=== PATIENT | female | born 1960 | race Caucasian/White ===

== ENCOUNTER 2024-02-29 17:48 | Inpatient (IN) | payer OTHER, SELFPAY ==
[2024-02-29] VITALS (19 sets, daily range): BP systolic 114–165; BP diastolic 51–112; BMI 28.5; BMI 24.9
[2024-02-29 14:47] LABS: Glucose - Point of Care 229 mg/dl (70-99)
--- NOTE | 2024-02-29 15:14 | ED.GENMED ---
History of Present Illness
General
Chief Complaint: Urinary Symptoms
Source: spouse
Time Seen by Provider: 02/29/24 14:37
History of Present Illness
History of Present Illness:
63-year-old female brought to the emergency room by ambulance from home due to decreased responsiveness. 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 She is cared for at home by her with the
help of visiting nurses. Patient's states that she was unresponsive for the wound care nurse today. Her normal level of responsiveness is eyes open and making eye contact. She will use her eyes to indicate that she understands questions
etc. She will occasionally follow commands. She will occasionally attempt to mouth words. Patient states that in the recent past the patient had some diarrhea which has resolved. Following the diarrhea she seemed to develop a urinary tract
infection as evidenced by foul-smelling urine, discolored urine and a fever. gave the patient bacitracin pills which he had at home. The urine seem to clear up. The patient was awake at her baseline earlier today and this change in
responsiveness happened 'suddenly'. Patient's is concerned about her blood pressure. He measures her blood pressure at least 10 times a day. He adjusts the dose of her blood pressure medicine depending upon her blood pressure. It
sometimes goes as low as 99/54 and as high as a systolic of 145. He is concerned that her fluctuating blood pressure may be contributing to her level of consciousness.
Past History
Past History
ED Past Medical History: CAD, HTN, Hypercholesterolemia and [place]
ED Past Surgical History: Other (Noncontributory)
Social History
Tobacco: Non-smoker
Alcohol: None
Drug: None
Personal:
Living: with family
Employment: Employed
Family History
Family History: Other (Noncontributory)
Phy Exam
Physical Exam
Physical Exam:
General: Eyes open, tracks. Appears chronically ill.
Vitals: Afebrile, normotensive, normal heart rate, normal pulse ox.
Head: Atraumatic
Eyes: Pupils equal, EOMI
Throat: Airway intact, no exudates
Neck: Trachea midline
Lungs: Clear and equal b/l
Heart: Regular rate, no murmurs
Abd: Soft, Nontender, No pulsatile mass
Neuro: Right hemiparesis
Skin: Warm, dry, no rash
Extremities: pulses equal b/l, no edema
Sepsis
Sepsis Screening
Sepsis Assessment: Sepsis Ruled Out
Sepsis Screen
Sepsis Screen: Sepsis Ruled Out
Date: 02/29/24
Time: 21:39
Course
Orders/Labs/Results
Orders:
Orders
02/29/24 Breakfast
NPO
Allow oral meds: Yes
Allow clear liquids: Sips of Clears
Comment: Allow oral meds if alert
02/29/24 14:39
Electrocardiogram (*1) Urgent
Reason for Study: Fatigue / Weakness
02/29/24 14:40
EKG- Treatment ONCE
02/29/24 15:01
CR Chest - 2 Views Urgent
Comment:
Reason For Exam: fever, decreased responsiveness
02/29/24 15:04
Basic Metabolic Panel Urgent
COVID-19 Antigen Urgent
Source: Nasal Swab
Complete Blood Count/With Diff Urgent
Influenza A+B Rapid Molecular Urgent
BRITTANY Source: Nasal Swab
Specimen Description:
02/29/24 15:13
CT Head W/o Iv Contrast Urgent
Comment:
Reason For Exam: less responsive than normal
02/29/24 16:30
Straight cath- Treatment ONCE
02/29/24 17:16
Admit/Transfer Patient As Directed
Co-Sign Provider:
Level of Care: Inpatient admission
Assign to:: IMU- Intermediate Care
Physician / Group: Shalonda
Diagnosis: Symptomatic Bradycardia
Reason for Hospitalization: Symptomatic Bradycardia
Expected length of stay greater than two midnights?: Yes
ELOS- Estimated Length of Stay in days: 3
I certify the patient meets the requirements for IP care: Yes
PRN Pain Medication Management As Directed
May give lesser potent ordered pain med per pt: Yes
preference::
Protocol:: Medication orders for pain may be administered in a
manner that supports deferring to patient preference
when the pt is:
- Requesting an ordered lesser potent pain medication.
Least to most potent pain medications are defined
as: acetaminophen < NSAID < tramadol < opioids
(morphine, oxycodone, hydromorphone).
- Requesting a lesser dose of the same medication IF
ORDERED.
- Requesting a less intrusive route of administration
if both routes are prescribed by the provider (PO <
IV).
02/29/24 17:19
Code Status As Directed
Resuscitation Status: Do not resuscitate
Reached after discussion with pt or family/Healthcare POA: Yes
DNR Bracelet Application ONCE
02/29/24 17:22
Add On- LAB Routine
Tests Added?: iron, ferrtin, tibc, folate, vit b12
Bladder Scan As Directed
Follow Bladder Retention/Intermittent Cath Algorithm?: Yes
PRN if no void in __ hours: 6
Frequency: Per Retention Algorithm
If Bladder Scan Result >: 400
then:: Straight cath
02/29/24 17:23
Straight Cath As Directed
Frequency: Per Retention Algorithm
Additional Instructions: straight cath as needed per acute urinary retention algorithm for 24 hrs
Additional Instructions: for bladder scan greater than 400 mL
02/29/24 17:30
0.9% Sodium Chloride 1000 ml [Nss] 1,000 ml IV 60 mls/hr
02/29/24 17:36
Peripheral Venous Lwr Ext Bilat US [US Periph Venous LOWER Ext Ryan] Urgent
Comment:
Reason For Exam: bilateral lower extremity edema
02/29/24 18:57
Arterial Blood Gas Urgent
%Oxygen/Room Air: 97%
02/29/24 19:20
Urinalysis Reflex To Culture Urgent
Date Specimen was Collected: 02/29/24
Time Specimen was Collected: 19:04
02/29/24 19:28
Ferritin Urgent
Folate Urgent
Iron Urgent
Procalcitonin Urgent
PCT Algorithmm Indication: Respiratory
Total Iron Binding Urgent
Vitamin B12 Urgent
02/29/24 20:00
Ampicillin/Sulbactam 3 G [Unasyn] 3 gm 0.9% Sodium Chloride 100 ml [Nss] 100 ml IV Q6H
02/29/24 20:21
Acetaminophen [Tylenol] 650 mg PO Q4HPRN PRN
Dextrose 50%-Water [Dextrose 50% Syringe] 12.5 grams IV [id number] PRN
Glucagon [GlucaGen] 1 mg IM PRN PRN
Heparin 5,000 units SC Q12
02/29/24 20:21
Echo 2D MMode Color/Doppler Routine
Reason for Study: bradycardia, lower ext edema
Cardiology Consult: Omari Baptiste
CARDIOLOGY CONSULT Routine
Consulting Provider: Omari Baptiste
Was physician already notified: Yes
WOUND/OSTOMY CONSULT Routine
Reason for Consult: sacral wound
Activity As Directed
Activity Level: Bedrest
Bedside Glucose Monitoring As Directed
Frequency: AC&HS
Additional Instructions:: Change to q6h if pt on TPN, tube feeding or not eating
I&O [Intake/ Output] As Directed
Frequency: q12h
Vital Signs As Directed
Frequency: Per unit guidelines
Weight As Directed
Frequency: Daily
Speech Therapy Eval & Treat Routine
DX Deep Vein Thrombosis Video Routine
DX Deep Vein Thrombosis Video Routine
03/01/24 06:00
Basic Metabolic Panel IN AM
Complete Blood Count/No Diff IN AM
Glycohemoglobin (HgbA1c) IN AM
TSH Reflex To Free T4 IN AM
03/01/24 07:30
Insulin Aspart Corrective Mod [Novolog Flexpen-Moderate Resistance] See Protocol SC AC
03/01/24 08:00
Clopidogrel Bisulfate [Plavix] 75 mg PO Q72H
Abnormal Lab Results
02/29/24 02/29/24
14:45 15:04
RBC 4.16 L 10^6/uL
(4.20-5.40)
Hgb 10.6 L g/dL
(12.0-16.0)
Hct 34.1 L %
(37.0-47.0)
MCH 25.5 L pg
(27.0-31.0)
MCHC 31.1 L g/dL
(33.0-37.0)
RDW 16.4 H %
(11.5-14.5)
Plt Count 416 H 10^3/uL
(130-400)
MPV 10.6 H fL
(7.4-10.4)
Absolute Lymphs (auto) 1.0 L 10^3/uL
(1.2-3.4)
Neutrophils % 78.2 H %
(42.2-75.2)
Lymphocytes % 15.5 L %
(20.5-51.1)
Sodium 134 L mmol/L
(135-145)
Carbon Dioxide 31 H mmol/L
(22-30)
Creatinine 0.4 L mg/dL
(0.6-1.0)
Glucose 205 H mg/dl
(70-99)
POC Glucose 229 H mg/dl
(70-99)
02/29/24 15:04
02/29/24 15:04
Vital Signs
Initial and Last Documented VS:
Initial Vital Signs
Temp Pulse Resp BP Pulse Ox
99.4 F 89 16 128/74 99
02/29/24 14:40 02/29/24 14:40 02/29/24 14:40 02/29/24 14:40 02/29/24 14:40
Last Documented Vital Signs
Temp Pulse Resp BP Pulse Ox
98.5 F 90 25 145/90 96
02/29/24 19:20 02/29/24 20:45 02/29/24 20:45 02/29/24 20:36 02/29/24 20:45
MDM/Problems Addressed
Differential Diagnosis Includes:
UTI, pneumonia, electrolyte abnormality, CVA or bleed,
MDM/Problems Addressed:
Patient presents with decreased mental status at home. During my evaluation the felt the patient was more like her baseline. Workup here revealed a urinalysis suggestive of a urinary tract infection. Chest x-ray had a questionable finding
of a right lower lobe infiltrate however I do not believe this is consistent with her presentation. Procalcitonin was low. CT of the head showed old infarcts but nothing acute. Patient also had an episode of bradycardia here which was also
associated with decreased mental status. Patient takes significant doses of antihypertensive including Coreg. Perhaps she is over beta blocked. Patient require hospitalization to treat her UTI and adjust blood pressure medication.
*Radiology
Radiology exam reviewed: radiology read reviewed
*Pulse Oximetry
Patient hypoxic: no
*EKG
Interpreted by ED Provider?: Yes
Heart Rate: 86
Rate: normal
Rhythm: sinus
QRS Pattern: normal QRS
Ischemia: non-specific ST changes
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
Rate: normal
Interpretation: normal
Rhythm: sinus
*Critical Care Note
Total Time (30-74mins, 75-104mins- exclusive of procedures): Not Applicable
Patient Management
Social determinants of health affecting care: Living situation
ED Attending Note
-
Portions of this chart may have been created with voice recognition software.� Occasional wrong word or��sound alike� substitutions may have occurred due to the inherent limitations of voice recognition software.
Discharge Plan
Departure
Patient Disposition: Admit
Date of Disposition: 02/29/24
Time of Disposition: 16:33
Presentation/result/management discussed w/ accepting MD/DO: Hospitalist
Condition: Fair
Discharge Problem:
Symptomatic bradycardia
Interventions
Interventions:
*Risk Screen - Suicide Last Done: 02/29/24 14:40
*General Assessment Last Done: 02/29/24 14:40
*Neglect/Abuse Screening Last Done: 02/29/24 14:40
*ED COVID-19 Vaccine History Last Done: 02/29/24 14:40
ED-Female Genitourinary Assessment Last Done: 02/29/24 15:30
--- NOTE | 2024-02-29 15:35 | EDRN ---
per the pt has a CVA in 2016 and in 2019 had a heart attack and also had a stroke again. the pt lives at home with her and home care. the pt does NOT stand or walk. 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
occasionally use it to pick something up. feeds the pt a regular diet. the pts bilateral legs 'twitch' occasionally but the pt largely does not move her legs at all. the pt has been nonverbal for the past one year and she sometimes says a
word or two but she can not form sentences. She communicates with facial expressions and eye movements per her .
[2024-02-29 15:40] LABS: COVID-19 Antigen Negative (Negative)
[2024-02-29 15:45] LABS: % Basophils 0.5 % (0-2); % Eosinophils 1.6 % (0-6); % Immature Granulocytes 0.5 % (0-0.5); % Lymphocytes 15.5 % (20.5-51.1); % Monocytes 3.7 % (1.7-9.3); % Neutrophils 78.2 % (42.2-75.2); Absolute Eosinophils 0.1 10^3/uL (0-0.7); Absolute Monocytes 0.2 10^3/uL (0.1-0.6); Absolute Neutrophils 4.9 10^3/uL (1.4-6.5); Hematocrit 34.1 % (37.0-47.0); Hemoglobin 10.6 g/dL (12.0-16.0); Mean Corp Hgb Conc. 31.1 g/dL (33.0-37.0); Mean Corpuscular Hgb 25.5 pg (27.0-31.0); Mean Platelet Volume 10.6 fL (7.4-10.4); Nucleated Red Blood Cells % 0 %; Platelet Count 416 10^3/uL (130-400); Red Blood Cell Count 4.16 10^6/uL (4.20-5.40); Red Cell Dist. Width 16.4 % (11.5-14.5); White Blood Cell Count 6.3 10^3/uL (4.8-10.8)
[2024-02-29 15:58] LABS: Blood Urea Nitrogen 14 mg/dl (7-17); Calcium 8.7 mg/dl (8.4-10.2); Carbon Dioxide 31 mmol/L (22-30); Chloride 99 mmol/L (98-107); Estimated Creatinine Clearance 100 ml/min; Glucose 205 mg/dl (70-99); Sodium 134 mmol/L (135-145); eGFR > 60.00
--- NOTE | 2024-02-29 16:37 | HPS.HSE ---
Family Physician
-
Family Physician: Lorna Hale
Chief Complaint
-
Unresponsive Episode
History of Present Illness
Patient is a 63 y/o female past medical history of multiple strokes, coronary artery disease, hypertension, and diabetes mellitus who presents following an unresponsive episode. While the wound care nurse was visiting today patient had an
unresponsive episode and she was brought to the emergency department for evaluation. While in the emergency department patient had recurrent episodes of bradycardia. Heart rate currently normal and she remains obtunded. notes she was
recently treated for a UTI with Bactrim. also notes patient's blood pressure has been quite variable and he has been making frequent adjustment to her blood pressure medications.
Medical History
Past Medical History
Past Medical History: Reports Other
Additional Past Medical History:
CVA with residual aphasia, left hemiparesis
Coronary Artery Disease s/p Stent
Essential Hypertension
Hyperlipidemia
Diabetes Mellitus, Type II
Sacral Decubitus
Past Surgical History: Reports None
Social History
Tobacco: Non-smoker
Alcohol: None
Living: With Family
Family History
Family History: Not pertinent
Allergies / Home Medications
Allergies reflects when Allergies were last updated in [facility].
Home Medications with original date entered in [facility]
Allergy/Medication List:
Allergies
Allergy/AdvReac Type Severity Reaction Status Date / Time
amlodipine besylate Allergy headache Verified 06/02/12 21:56
[From Norvasc]
moxifloxacin HCl Allergy Shortness Verified 06/02/12 21:56
[From Avelox] of Breath
Quinolones Allergy Unknown Verified 06/03/12 06:21
Home Medications
carvedilol 12.5 mg tablet 6.25 mg PO DAILYPRN PRN SBP>130 06/02/12
lisinopril 20 mg tablet 10 mg PO DAILYPRN PRN SBP>140 06/02/12
ascorbic acid (vitamin C) 1,000 mg tablet (Vitamin C) 1 g PO DAILY 02/29/24
atorvastatin 20 mg tablet 20 mg PO Q72H 02/29/24
cholecalciferol (vitamin D3) 25 mcg (1,000 unit) tablet (Vitamin D3) 25 mcg PO DAILY 02/29/24
clopidogrel 75 mg tablet 75 mg PO Q72H 02/29/24
insulin aspar prot-insulin aspart 100 unit/mL (70-30) subcutaneous pen (Novolog Mix 70-30FlexPen U-100) 20 unit SC DAILY 02/29/24
insulin aspar prot-insulin aspart 100 unit/mL (70-30) subcutaneous pen (Novolog Mix 70-30FlexPen U-100) 25 - 30 unit SC NOON 02/29/24
magnesium oxide 200 mg PO DAILY 02/29/24
minoxidil 10 mg tablet 10 mg PO HSPRN PRN High BP 02/29/24
minoxidil 2.5 mg tablet 1.25 - 2.5 mg PO HS 02/29/24
therapeutic multivitamin 1 tab PO DAILY 02/29/24
Review of Systems
-
Unable to obtain full review of systems at this time due to: Patient Non-verbal
Physical Exam
Vital Signs
Vital Signs
Temp Pulse Resp BP Pulse Ox
99.4 F 63 18 127/68 95
02/29/24 14:40 02/29/24 15:39 02/29/24 15:39 02/29/24 15:39 02/29/24 15:39
Physical Exam
General: Well Developed and Well Nourished
HEENT: NormoCephalic, Anicteric, Oxygen (Nasal Cannula) and Other (Mucus Membranes are Dry)
Respiratory: Clear and Non Labored Respirations
Cardiac: S1/S2 and Regular Rhythm
GI: Soft and Non Tender
Rectal: Deferred by Provider
Musculoskeletal: No Clubbing, No Cyanosis and Other (+3 pitting edema bilateral lower extremities)
Skin: Warm and Dry
Neuro: Other (Aphasic and Left Hemiparesis at baseline; Patient opened eyes slightly to physical stimuli)
Psych: Calm
Laboratory Results
-
02/29/24 15:04
02/29/24 15:04
Laboratory Results
Total Bilirubin Cancelled 02/29/24 15:04
AST Cancelled 02/29/24 15:04
ALT Cancelled 02/29/24 15:04
Alkaline Phosphatase Cancelled 02/29/24 15:04
Chest X-Ray: Mild right pneumonia.
Data Reviewed
-
Diagnostic Radiology: Report Reviewed by me
Lab Data: Labs Reviewed by me
Impression/Plan
-
Change in Mental Status, possibly symptomatic bradycardia though patient remains obtunded despite normal heart rate, possibly TME due to infection possibly UTI or aspiration pneumonia
-Monitor for recurrent bradycardia in IVU
-Check ABG
-Check urinalysis with reflex to culture
-Start empiric Unasyn to cover for possible aspiration
Bilateral Lower Extremity Edema
-Check Peripheral Vascular US
-Check Echocardiogram
CVA with residual aphasia, left hemiparesis
-Patient essential bedbound at baseline, uses lift to sit in a chair for a few hours a day
-Per family she eat regular food - Will keep NPO until seen by speech due to current mental status
-Continue Plavix as able
Coronary Artery Disease s/p Stent
-Continue Plavix as able
Essential Hypertension
-Hold all anti-hypertensive meds due to variable blood pressure readings
Hyperlipidemia
-Continue atorvastatin
Diabetes Mellitus, Type II
-Hold NovoLog 70/30
-Monitor sugars and continue coverage insulin
Chronic Sacral Wounds
-Consult wound care
Normocytic Anemia
-Check iron, ferritin, tibc, folate and vit b12
DVT proph: SC Heparin
Code Status: DNR confirmed with patient's Tariq at the bedside at the time of admission
--- NOTE | 2024-02-29 17:34 | W.PN.UPDATE ---
Update Note
Progress Note Update
This is an addendum to the H&P written by Janine Tillman on 02/29/2024. Patient seen and examined dependently with PA.
63-year-old female past medical history of hypertension, CAD status post LAD PCI in 1999, hyperlipidemia, hyperlipidemia, diabetes, prior CVA with residual left-sided weakness, chronic bedbound and aphasic presenting with decreased responsiveness.
She can normally open eyes and make eye contact and uses eyes to answer questions. She was awake today and change in mental status occurred suddenly.
Recently had diarrhea as well as UTI treated with Bactrim.
She has been having volatile blood pressures.
When she arrived she was found to be bradycardic with heart rate in 30s. This has improved spontaneously.
Labs unremarkable. Chest x-ray shows mild right pneumonia. CT head shows old infarcts.
Altered mental status unclear etiology. Patient is still obtunded despite normal heart rate at this time. Concern for potential metabolic encephalopathy secondary to UTI, possible right lower lobe aspiration pneumonia. Will also check ABG. No
focal neurological deficits to suggest CVA. No sedating medications.
Also possible the patient had syncopal episode from symptomatic bradycardia secondary to Coreg. Has improved at this time. Hold Coreg. Cardiology consulted.
Also concern for aspiration pneumonia of right lower lobe. Unasyn started. Hold antihypertensive medications and diabetic medications.
Continue IV fluids. Check urinalysis and speech and swallow evaluation.
[2024-02-29] MEDS: NSS 1000 IV (18:07)
[2024-02-29 19:15] LABS: B.E. 2.6 mmol/L; HCO3 28.8 mmol/L (21-28); PCO2 51 mmHg (32-35); PO2 169 mmHg (83-108); pH 7.36 (7.35-7.45)
[2024-02-29 19:28] LABS: Urine Albumin 1+ (Neg - Trace); Urine Bilirubin Negative (Negative); Urine Character Clear (Clear); Urine Color Yellow; Urine Glucose Negative (Negative); Urine Ketone Negative (Negative); Urine Leukocyte 2+ (Negative); Urine Nitrite Negative (Negative); Urine Occult Blood 2+ (Negative); Urine Urobilinogen Negative (Neg - 1+)
[2024-02-29 19:34] LABS: Urine Squamous Cell 0-2 /LPF (Few)
[2024-02-29 19:36] LABS: Urine Amorphous Seen; Urine Bacteria Many (Negative); Urine White Cell 70-80 /HPF (0-5)
[2024-02-29 19:56] LABS: Iron 50 ug/dl (37-170)
[2024-02-29 20:03] LABS: Percent Saturation 14 % (20-50); Total Iron Binding Capacity 339 ug/dl (265-497)
[2024-02-29 20:07] LABS: Procalcitonin < 0.05 ng/ml (0.0-0.25)
[2024-02-29 20:25] LABS: Ferritin 74.8 ng/ml (11.1-264.0)
[2024-02-29 20:57] LABS: Folate > 20.0 ng/ml (2.76-20); Vitamin B12 784 pg/ml (239-931)
[2024-02-29] MEDS: UNASYN IV (21:48)
[2024-02-29] MEDS: HEPARIN 5000 UNITS SC (21:52)
[2024-02-29 23:41] LABS: Glucose - Point of Care 165 mg/dl (70-99)
--- NOTE | 2024-02-29 23:55 | PTCARENOTE ---
Received pt from ED @ 22:37. Pt with hx of multiple CVAs. Completely aphasic, nonverbal. Opens eyes to verbal stimuli. BLLE and LUE paralyzed, RUE contracted. NSR on monitor. On 2LNC d/t sleep apnea. SaO2 98% on 2LNC. Breaths shallow (poor effort),
fine crackles in R base. Round/obese belly. Positive bowel sounds. Incont b/b. Currently NPO w/ sips&meds (if alert). Sacral wound dressing changed. R upper thigh wound dressing applied. Pt positioned on R side. Q2T. Accucheck Q6H. IV unasyn Q6.
Care ongoing.
[2024-03-01] VITALS (12 sets, daily range): BP systolic 101–154; BP diastolic 49–90; BMI 25.1
[2024-03-01] MEDS: NOVOLOG FLEXPEN-MODERATE RESISTANCE 1 UNITS SC ×2 (00:32→12:19)
[2024-03-01] MEDS: UNASYN IV ×4 (02:09→20:41)
--- NOTE | 2024-03-01 02:33 | PTCARENOTE ---
Pt HR dropped to 30s on monitor. Upon entering pt room, pt appeared apneic and less responsive. Pt HR recovered after pt awoke from verbal/tactile stimuli. On 2LNC HS for possible sleep apnea.
[2024-03-01] MEDS: NOVOLOG FLEXPEN-MODERATE RESISTANCE SC ×2 (05:31→17:54)
[2024-03-01 05:41] LABS: Glucose - Point of Care 131 mg/dl (70-99)
[2024-03-01 06:33] LABS: Hematocrit 34.2 % (37.0-47.0); Hemoglobin 10.4 g/dL (12.0-16.0); Mean Corp Hgb Conc. 30.4 g/dL (33.0-37.0); Mean Corpuscular Hgb 25.1 pg (27.0-31.0); Mean Corpuscular Volume 82.4 fL (81.0-99.0); Mean Platelet Volume 10.5 fL (7.4-10.4); Platelet Count 276 10^3/uL (130-400); Red Blood Cell Count 4.15 10^6/uL (4.20-5.40); Red Cell Dist. Width 15.9 % (11.5-14.5); White Blood Cell Count 5.8 10^3/uL (4.8-10.8)
[2024-03-01 07:06] LABS: ALT (SGPT) 43 U/L (0-35); Albumin 3.1 g/dl (3.5-5.0); Blood Urea Nitrogen 13 mg/dl (7-17); Calcium 8.8 mg/dl (8.4-10.2); Carbon Dioxide 25 mmol/L (22-30); Chloride 106 mmol/L (98-107); Estimated Creatinine Clearance 101 ml/min; Glucose 124 mg/dl (70-99); Potassium 4.4 mmol/L (3.5-5.1); Sodium 139 mmol/L (135-145); Total Bilirubin 0.6 mg/dl (0.2-1.3); Total Protein 6.1 g/dl (6.3-8.2); eGFR > 60.00
[2024-03-01] MEDS: HEPARIN 5000 UNITS SC ×2 (08:14→20:31)
[2024-03-01] MEDS: PLAVIX PO (08:21)
--- NOTE | 2024-03-01 08:58 | CON.CAR ---
Addendum entered and electronically signed by Yossi Chen MD 03/01/24 11:01:
I saw and examined the patient.
The Needle Grinder's note was reviewed and I agree with the note.
Comment:
GEN: No distress,
HEENT: supple, anicteric, mmm
LUNGS: CTA, no wheezes/rales
CV: Reg, S1/S2, 1/6 syst LSB, no gallop
ABD: soft, BS+, NT/ND
EXT: No edema
NEURO: Gross non-focal
SKIN: No rash
Plan:
She has an extensive vascular history including multidrug-resistant hypertension, multiple strokes, coronary artery disease who presents with an episode of questionable unresponsiveness.
Her medical therapy is managed by her now although she has had multiple intolerances to hypertension medications.
She was previously getting carvedilol as needed.
Will check echocardiogram. Monitor reveals sinus rhythm with some PVCs and occasional bradycardia.
No clear indication for permanent pacemaker at this time.
Will add lisinoipril 10mg daily. Would avoid Coreg
Can also ad Minoxidil.
Original Note:
Consultation
Consultation Request
Date/Time Consultation Requested: 02/29/24 at 2021
Date/Time Consultation Performed: 03/01/24 at 0859
Requesting Provider: Dr. Henao
Performing Provider: Dr. Chen
Reason for Consultation: Unresponsive episode, bradycardia
Medical History
-
History of Present Illness:
Patient came to ER from home after witnessed episodes of decreased levels of responsiveness and cardiology has been consulted for intermittent sinus bradycardia. Patient was previously followed by [facility] cardiology in 2013, but has not been seen by
our office since then. Patient has a cardiac history from back in the year 1999 and she was only 38 years old at that time, but had SOB and CURRAN and was admitted to [facility] and after serial Troponins that returned positive she went on to have a
cardiac catheterization at [facility]. In the year 1999 at [facility], she had an LAD PCI with 2 stents being placed and she took Plavix for 1 month prior to stopping it on her own due to dyspepsia. She
continued with aspirin. She continued with Cardiology care in at [facility] until 2005 when she had chest pain and completed an exercise nuclear stress test that was reportedly normal, but she was dissatisfied with her Cardiology care at that time and
stopped seeing that heel boom operator. Patient then came to ER in 2012 with chest pain and after serially undetectable troponin levels completed Persantine nuclear stress test that showed no evidence of ischemia and was discharged to home. Patient
followed up in the cardiology office and had ongoing HTN and was overall frustrated with her symptoms and never returned to our office. Around that same time patient had also been referred to Nephrology and was last seen by them in the office on
08/10/2012 and to quote a line directly from that consult, 'I simply do not know how it could be the case that she remains symptomatic due to hydralazine and I have no plausible logical explanation to explain her ongoing symptoms and have tried
every medication I can think of at this point and unfortunately patient has been intolerant of Norvasc, Avelox, clonidine, hydralazine of apparently Aldactone as well. Unfortunately I do not feel that I can help her at this point anymore as I have
no more options to explore and referred her to [facility] for tertiary care.'It is unknown if patient ever followed up at a tertiary care center, but at some point she had multiple strokes and now has left-sided hemiparesis, aphasia and RUE contraction,
but despite this she continues to live at home with her who is her primary caregiver and is able to get the patient up OOB into a chair during the day and with the help of VNA and SUPERINTENDENT TRANSPORTATION he has been able to care for her within their home.
Wound care was asked to see the patient yesterday and she was noted to have an episode of decreased responsiveness and was brought to ER. Patient has had additional episodes and some have correlated to bradycardia, but other episodes are not
linked to bradycardia. Overnight telemetry and nursing notes reviewed and at one point patient was noted to be apneic and have bradycardia, but heart rate improved when nursing awakened the patient. There is no known diagnosis of REYNA.
PMH:
HTN
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
CAD s/p LAD PCI at [facility] 1999
Hyperlipidemia
DM 2
Sacral wound
Past Medical History
Past Medical History: Other (in HPI)
Social History
Tobacco: Non-Smoker
Alcohol: None
Drug: None
Personal:
Living: With Family (bedbound and cared for at home by her )
Family History
Family History: Reviewed & Not Pertinent (no FH CAD)
Allergies / Home Medications
Allergy/AdvReac Type Severity Reaction Status Date / Time
amlodipine besylate Allergy headache Verified 06/02/12 21:56
[From Norvasc]
moxifloxacin HCl Allergy Shortness Verified 06/02/12 21:56
[From Avelox] of Breath
Quinolones Allergy Unknown Verified 06/03/12 06:21
�Medication �Instructions �Recorded �Confirmed �Type
carvedilol 12.5 mg tablet 6.25 mg PO DAILYPRN PRN SBP>130 06/02/12 02/29/24 History
lisinopril 20 mg tablet 10 mg PO DAILYPRN PRN SBP>140 06/02/12 02/29/24 History
ascorbic acid (vitamin C) 1,000 mg 1 g PO DAILY 02/29/24 02/29/24 History
tablet (Vitamin C)
atorvastatin 20 mg tablet 20 mg PO Q72H 02/29/24 02/29/24 History
cholecalciferol (vitamin D3) 25 25 mcg PO DAILY 02/29/24 02/29/24 History
mcg (1,000 unit) tablet (Vitamin
D3)
clopidogrel 75 mg tablet 75 mg PO Q72H 02/29/24 02/29/24 History
insulin aspar prot-insulin aspart 20 unit SC DAILY 02/29/24 02/29/24 History
100 unit/mL (70-30) subcutaneous
pen (Novolog Mix 70-30FlexPen
U-100)
insulin aspar prot-insulin aspart 25 - 30 unit SC NOON 02/29/24 02/29/24 History
100 unit/mL (70-30) subcutaneous
pen (Novolog Mix 70-30FlexPen
U-100)
magnesium oxide 200 mg PO DAILY 02/29/24 02/29/24 History
minoxidil 10 mg tablet 10 mg PO HSPRN PRN High BP 02/29/24 02/29/24 History
minoxidil 2.5 mg tablet 1.25 - 2.5 mg PO HS 02/29/24 02/29/24 History
therapeutic multivitamin 1 tab PO DAILY 02/29/24 02/29/24 History
Review of Systems
-
History Source: Family and Transfer Record
All other systems: Negative unless noted
Physical Exam
Vital Signs
Temp Pulse Resp BP Pulse Ox
98.1 F 73 19 121/81 99
03/01/24 03:58 03/01/24 06:00 03/01/24 06:00 03/01/24 06:00 03/01/24 06:00
GEN: NAD. Minimally responsive
HEENT: Neck folds pink and scaling. MMM
LUNGS: 2 L NC. Clear anterolaterally with poor inspiratory effortCTA, no wheezes/rales
CV: Reg, S1/S2, 1/6 syst LSB, no murmur
ABD: soft, BS+, NT/ND
EXT: No edema
NEURO: Gross non-focal
SKIN: No rash
Lab Results
03/01/24 05:59
03/01/24 05:59
Impression / Plan
-
PCP: Lorna Hale
Cardiology: Dr. Chen, last seen 2012
Impression:
Admitted with decreased level of responsiveness 02/29/24
Sinus bradycardia
Possible REYNA
Possible UTI
Possible aspiration PNA
B/L LE edema
Hypoalbuminemia
HTN
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
CAD s/p LAD PCI at [facility] 1999
Hyperlipidemia
DM 2
Sacral wound
Echo 05/24/2012: EF 55 to 60%, no WMA, moderate concentric LVH, normal RV size and function, mild MR
Plan:
-Patient came to ER from home after witnessed episodes of decreased levels of responsiveness and cardiology has been consulted for intermittent sinus bradycardia. Patient was previously followed by [facility] cardiology in 2012, but has not been seen
by our office since then. Patient has a cardiac history from back in the year 1999 and she was only 38 years old at that time, but had SOB and CURRAN and was admitted to [facility] and after serial Troponins that returned positive she went on to
have a cardiac catheterization at [facility]. In the year 1999 at [facility], she had an LAD PCI with 2 stents being placed and she took Plavix for 1 month prior to stopping it on her own due to dyspepsia. She
continued with aspirin. She continued with Cardiology care in at [facility] until 2005 when she had chest pain and completed an exercise nuclear stress test that was reportedly normal, but she was dissatisfied with her Cardiology care at that time and
stopped seeing that heel boom operator. Patient then came to ER in 2012 with chest pain and after serially undetectable troponin levels completed Persantine nuclear stress test that showed no evidence of ischemia and was discharged to home. Patient
followed up in the cardiology office and had ongoing HTN and was overall frustrated with her symptoms and never returned to our office. Around that same time patient had also been referred to Nephrology and was last seen by them in the office on
08/10/2012 and to quote a line directly from that consult, 'I simply do not know how it could be the case that she remains symptomatic due to hydralazine and I have no plausible logical explanation to explain her ongoing symptoms and have tried
every medication I can think of at this point and unfortunately patient has been intolerant of Norvasc, Avelox, clonidine, hydralazine of apparently Aldactone as well. Unfortunately I do not feel that I can help her at this point anymore as I have
no more options to explore and referred her to [facility] for tertiary care.'It is unknown if patient ever followed up at a tertiary care center, but at some point she had multiple strokes and now has left-sided hemiparesis, aphasia and RUE contraction,
but despite this she continues to live at home with her who is her primary caregiver and is able to get the patient up OOB into a chair during the day and with the help of VNA and SUPERINTENDENT TRANSPORTATION he has been able to care for her within their home.
Wound care was asked to see the patient yesterday and she was noted to have an episode of decreased responsiveness and was brought to ER. Patient has had additional episodes and some have correlated to bradycardia, but other episodes are not
linked to bradycardia. Overnight telemetry and nursing notes reviewed and at one point patient was noted to be apneic and have bradycardia, but heart rate improved when nursing awakened the patient. There is no known diagnosis of REYNA.
-ECG reviewed by me is NSR with lateral T wave changes, will repeat today, ordered by me.
-Tele reviewed by me and no high grade heart block, no pauses.
-Patient was taking Coreg 6.25 mg daily and as needed for SBP greater than 130 prior to admission and patient's has been trying to manage higher BPs at home with Coreg as a PRN, but ongoing mental status changes do not correlate with
bradycardia and appears more consistent with TME.
-No class I indication for PPM at this time.
-MRI brain ordered
-Antibiotics ordered for possible UTI or aspiration PNA.
-Patient has a longstanding history of multidrug resistant HTN and has had multiple medication intolerances which were previously considered puzzling. Currently on a regimen of lisinopril 10 mg daily if SBP greater than 140, minoxidil 1.25 mg to
2.25 mg at bedtime plus an additional 10 mg at bedtime as needed elevated SBP and also Coreg 6.25 mg daily with additional dosing as needed SBP greater than 130. Her is handling a tremendous workload with the patient at home and
micromanaging her BP regimen, perhaps we can eliminate Coreg and focus on other medications for treating her HTN. Would favor adding back hydralazine as previous intolerance of abdominal pain may no longer be an issue.
-Check echo, previously patient had mod conc LVH.
-LE edema is likely multifactorial due to body position, previous CVA and low albumin.
--- NOTE | 2024-03-01 09:12 | W.PN.HOSP.TC ---
Addendum entered and electronically signed by Charanjit Henao MD 03/01/24 20:36:
Attending Addendum-
I saw and evaluated the patient. I reviewed the resident�s note and agree with findings and plan as documented in the resident�s note. Sub: Patient staring but not following commands. Able to groan. No discernable speech. Full 12 point ROS reviewed
and negative except as documented Exam: Vitals reviewed in chart GEN-NAD heart irreg reg lungs rhonchi at bases b/l abd soft NT ND pos BS LE- + b/l LE edema Neuro not following commands PERRLA b/l RUE hands contracted
# TME
- secondary to infection vs progression of CVA vs cardiac etiology
- monitor closely in IMU
- check MRI brain
- urine tox
- trend trops
- thakkar culture
# UTI
- check blood cx
- DC unasyn start rocephin and doxy
- await urine cx
# PNA
- change abx to Rocephin and doxycycline
- speech eval
- check VFSS
# Bradycardia
- check ECHO
- tsh and cortisol- wnl
- cards consult
- trend trops
- hold coreg
# Transaminitis
-trend, repeat in am
# CVA with residual aphasia, left hemiparesis
-Patient essential bedbound at baseline, uses lift to sit in a chair for a few hours a day
-Per family she eat regular food
-Continue Plavix as able
-poor QOL
-hospice appropriate
# Coronary Artery Disease s/p Stent
-Continue Plavix as able
# Essential Hypertension
-Hold coreg and minoxidil
-add lisinopril per cards
# Hyperlipidemia
-Continue atorvastatin
Diabetes Mellitus, Type II
-Hold NovoLog 70/30
-Monitor sugars and continue coverage insulin
# Chronic Sacral Wounds
-Consult wound care
# Normocytic Anemia
-Check iron, ferritin, tibc, folate and vit b12
DVT proph: SC Heparin
Code Status: DNR confirmed
ACP
Patient unable to consent, d/w POA/, time spent explanation of advance directives, changes in health status, patient�s health care wishes if the patient becomes unable to make health decisions, goals of care, code status, and prognosis- 16
minutes
Time spent coordinating care, review of plan of care with resident, personally reviewed previous records in EMR, med rec, labs, radiology, d/w nursing, family total time documented is exclusive of any additional time listed that was spent in advance
care planning discussion -�63 minutes
Original Note:
Today's Communication/Plan
-
Brain MRI
VSE
Utox
Assessment / Plan
Assessment / Plan
Patient is 63-year-old female with past medical history of multiple strokes, CAD, hypertension, diabetes mellitus who presents to [facility] after an unresponsive episode. While being evaluated by her wound care nurse at home, patient was
noted to be unresponsive.
# Altered mental status possibly secondary to symptomatic bradycardia versus CVA versus R-sided pneumonia
Patient minimally/not responsive to sternal rub, name, opening eyes.
Patient has had multiple episodes of bradycardia with apnea. Continue to monitor for recurrent bradycardia
CT negative for acute brain bleed. MRI brain pending.
Urinalysis positive, culture pending
Urine tox pending
Negative for flu
MRSA pending
Continue Unasyn
#Bilateral lower extremity edema
Peripheral vascular ultrasound negative
Echo pending
#CVA with residual aphasia, left hemiparesis
Bedbound at baseline, uses lift to sit in chair at home for few hours a day
Minimally/not responsive to stimuli in IMU
Continue Plavix in setting of multiple CVA history
VSE pending
Troponins pending
Cortisol normal 18.8
#CAD
Continue Plavix
#Essential hypertension
Hold antihypertensive medications
#Hyperlipidemia
Continue atorvastatin
#Diabetes mellitus
Hold NovoLog
Monitor sugars and continue sliding scale insulin
#Chronic sacral wounds
Continue wound care
DVT prophylaxis subcu heparin
DNR
Anticipated Discharge: > 48 hours
Subjective/Interval History
-
Date of Service: March 01, 2024
Patient is 63-year-old female with past medical history of multiple strokes, CAD, hypertension, diabetes mellitus who presents to [facility] after an unresponsive episode. While being evaluated by her wound care nurse at home, patient was
noted to be unresponsive. In the ED she had recurrent episodes of bradycardia with apnea. She was recently treated for UTI with Bactrim and he has been manipulating many of her blood pressure medications due to recent volatility and blood pressure
at home. At baseline she is nonverbal and not responsive to most stimuli. Unclear in exam today whether or not she was blinking in response to my request to her blank or if she was just looking towards me. Nursing expressed concern of new right
sided facial droop. CT brain was negative for acute bleed, MRI ordered for today.
Objective Data
-
Labs:
Laboratory Results
03/01/24 03/01/24
03:44 05:59
WBC Cancelled 5.8
Hgb Cancelled 10.4 L
Hct Cancelled 34.2 L
Plt Count Cancelled 276 D
Sodium Cancelled 139
Potassium Cancelled 4.4
Chloride Cancelled 106
Carbon Dioxide Cancelled 25
BUN Cancelled 13
Creatinine Cancelled 0.4 L
Glucose Cancelled 124 H
Calcium Cancelled 8.8
Total Bilirubin 0.6
AST Pending
ALT 43 H
Alkaline Phosphatase Pending
Vital Signs:
Vital Signs
Temp Pulse Resp BP Pulse Ox
98.1 F 73 19 121/81 99
03/01/24 03:58 03/01/24 06:00 03/01/24 06:00 03/01/24 06:00 03/01/24 06:00
I&O
02/29/24 03/01/24 03/02/24
06:59 06:59 06:59
Intake Total 600 / 600
Balance 600 / 600
Review of Systems
-
Unable to obtain full review of systems at this time due to: Patient Non-verbal
History Source: Patient
Physical Exam
-
General: Comfortable and Appears Chronically Ill
Respiratory: Clear to Auscultation and Non Labored Respirations
Cardiac: Regular Rhythm and S1/S2
GI: Soft, Nontender and Nondistended
Musculoskeletal: Edema, Right Lower Extrem and Edema, Left Lower Extrem
Skin: Warm, Dry and Other (A little sweaty this morning)
Neuro: Other (Minimally responsive to most stimuli. Not responsive to sternal rub or name.); Negative Awake, Alert or Oriented
Data Reviewed
-
CT Scan: Report Reviewed by me
Labs: Labs Reviewed by me and Discussed with Physician
Old Records: Reviewed
[2024-03-01 09:20] LABS: AST (SGOT) 39 U/L (14-36); Alkaline Phosphatase 70 U/L (38-126)
--- NOTE | 2024-03-01 09:20 | PTOTSP ---
Speech Language Pathology
Pt seen for speech/language evaluations to see if communication could be aided while in hospital. Pt with severe speech/language deficits. Pt nonverbal during evaluation. This date, no attempts to blink to answer questions noted. Pt did not
follow any commands. Pt able to visually track RETAIL STORE MANAGER to midline x1, but unable to track past midline despite cueing. Unable to visually identify object in field of 2, so is not appropriate for low-tech picture communication board use.
Pt also seen for clinical bedside swallow evaluation. Oral care completed with use of suction toothbrush. Pt with strong bite reflex on toothbrush. Staff notified. P.O. trials of puree and thin liquids provided. Decreased oral prep skills noted
with bite response to many items initially placed in oral cavity. With initial 3ccs of thin water via pipetted straw, delayed cough noted. Significant coughing episode also noted with swallow of saliva. Multiple swallows per bolus noted with
puree, unsure if piecemeal deglutition or related to pharyngeal residue.
Pt with questionable aspiration PNA with hx of CVA.
Recommend:
(1) VSE
(2) NPO until VSE completed
(3) Non oral meds
(4) Oral care 4x/day with suctioning as needed
(5) Hold on ARHP until VSE completed, as should be completed in the near future
(6) RETAIL STORE MANAGER to continue to follow
--- NOTE | 2024-03-01 09:31 | PTCARENOTE ---
Assumed care of patient at beginning of this shift from previous RN with O2 2l n/c in use. Great difficulty trying to arouse patient; resident also at bedside. Patient did open her eyes and was able to track this RN and resident as well. She did not
blink in response to question by this nurse but resident stated she did blink in response to her. MRI now ordered. ST in room seeing patient.
[2024-03-01 10:18] LABS: Glycohemoglobin (HgbA1c) 6.4 % (4.0-5.6)
[2024-03-01 10:53] LABS: TSH Reflex To Free T4 3.21 uIU/ml (0.47-4.68)
--- NOTE | 2024-03-01 11:30 | PTOTSP ---
Speech Language Pathology
VIDEOFLUORSCOPIC SWALLOWING EXAMINATION (VSE) completed. Overall, mild-mod oral and mod pharyngeal dysphagia noted. Decreased velopharyngeal closure noted with escape of bolus intermittently to nasopharynx. Penetration/aspiration frequently
noted. Incoordination noted, so aspiration is still possible even with recommended diet. Will continue to monitor.
Recommend:
(1) IDDSI Level 5 (minced/moist) solids and thin liquids
(2) Aspiration precautions: liquids via small straw sips (pinch straw to ensure small amount), sit upright, slow rate, full supervision
(3) Meds crushed in puree
(4) MOTEL FRONT DESK ATTENDANT to continue to follow
--- NOTE | 2024-03-01 11:31 | WOUNDNOTE ---
WON RN note: Patient admitted with symptomatic bradycardia.
See H&P for complete history. Lives at home, is bedbound.
PMH: HTN, sacral ulcer, CAD, s/p LAD PCI 1999, CVA with aphasia, neuropathy.
Wound Location and type/assessment: Patient admitted with: healed sacral and L posterior thigh ulcers. With assistance from PCT Holley, turned patient onto sides. Sacrum/buttocks blanchable pink. Few faint healed areas that are now dry patches, no
open wounds visible. L posterior thigh with crease, moist pink skin at base, Callus distal to crease. No drainage and no open wounds. L heel is boggy and blanchable red, R heel intact. Has own quilted heel boots in use, does not have hole cut out to
offload heels. Neck with MASD, red fungal rash.
Appetite: NPO
Pressure redistribution devices in place: On air mattress. Turning schedule maintained. Called SPD for TruVue lite offloading boots. Called IMU to make nurse aware and to apply when arrives.
Plan: Silicone foams applied to Sacrum and L posterior thigh. Protective foam in use on L heel. Offload heels. Ordered Nizoral cream to use for fungal rash on neck. Will confirm orders with hospitalist and updated nurse.
Updated care plan and will follow as needed.
Note to case management of equipment requested for discharge: None.
[2024-03-01] MEDS: NSS 1000 IV (12:18)
[2024-03-01 12:26] LABS: Cortisol, Random 18.8 ug/dl
[2024-03-01 12:26] LABS: Glucose - Point of Care 164 mg/dl (70-99)
--- NOTE | 2024-03-01 13:51 | CM ---
CM following re: discharge planning.
Reviewed pt's chart, met with pt. pt's and caregiver at bedside.
Pt is a 63 year old female, admitted with primary dx of Altered mental status possibly secondary to symptomatic bradycardia versus CVA versus R-sided pneumonia.
Pt is not a great historian, not responding to questions. Information obtained from pt's Tariq. Pt livers with in a senior citizens apartment [facility], 1st floor, no steps, pt has no children, husbnad has 2 children from
previous marriage. Per , pt is a bed bound, has w/c, hospital bed, Ana lift. Pt is enrolled in PDA waiver program, has 5-7 hours of caregiver services per day 7 days per week provided bu [facility]. Per , pt was in [facility] in the past, had [facility] and per [facility] cannot accept her due to insurance.
Pt's stated he will bring the pt home at discharge with VN services if needed, resumptions of caregiver services and family support.
PCP: Lorna Hale
Pharmacy: [facility]
D/C plan: home with most likely VN services, resumptions of caregiver services and support.
CM will follow with discharge plan updates as hospitalization progresses
[2024-03-01 14:04] LABS: Troponin I 0.037 ng/ml
--- NOTE | 2024-03-01 15:00 | CARDSERVLU ---
Echocardiogram with [facility]ason completed after protocol screening completed. Allergies verified.
Patent IV site: __R hand___
IV site flushed with 0.9% NaCl pre and post administration.
Diluted bolus method utilized to enhance visualization of ventricular bernardo.
Total volume given: __2.5__ mL
Patient tolerated all procedures well without complications.
--- NOTE | 2024-03-01 16:30 | W.PN.UPDATE ---
Update Note
Progress Note Update
Spoke with patient's today regarding progress of care. Shared the current ongoing testing and organ systems we are assessing. He shared that until the change in mentation, his was awake and would make facial expressions in conversation.
He states he had never seen her unresponsive like this until yesterday afternoon. Requested that I call him again tomorrow if he is not able to to come to the hospital.
[2024-03-01 17:51] LABS: Glucose - Point of Care 138 mg/dl (70-99)
[2024-03-01 18:03] LABS: Troponin I 0.047 ng/ml
[2024-03-01] MEDS: NIZORAL 2% CREAM 1 APPLIC TOPICAL (20:32)
[2024-03-01 21:08] LABS: Glucose - Point of Care 128 mg/dl (70-99)
[2024-03-01] MEDS: STERILE WATER FOR INJECTION 20 ML IV (21:44)
[2024-03-01] MEDS: VIBRAMYCIN 260 MG IV (21:45)
[2024-03-01] MEDS: ROCEPHIN 2000 MG IV (21:45)
--- NOTE | 2024-03-01 22:57 | PTCARENOTE ---
Pt received from previous RN. Pt nonverbal. Pt opens eyes to verbal stimuli. When moving around the room pt assessed to follow this RNs movement. Pt wincing/ moaning to discomfort when drawing labs. NSR on monitor. on RA satting 95%. Assessment as
documented. order received for BC. drawn and sent. Unasyn d/c'd by provider. new orders for Rocephin and Vibramycin. med administered as ordered.
[2024-03-02] VITALS (16 sets, daily range): BP systolic 137–164; BP diastolic 76–109; BMI 24.9
[2024-03-02 00:05] LABS: Troponin I 0.048 ng/ml
[2024-03-02 05:33] LABS: ALT (SGPT) 38 U/L (0-35); AST (SGOT) 34 U/L (14-36); Albumin 3.6 g/dl (3.5-5.0); Alkaline Phosphatase 95 U/L (38-126); Blood Urea Nitrogen 12 mg/dl (7-17); Calcium 9.1 mg/dl (8.4-10.2); Carbon Dioxide 22 mmol/L (22-30); Chloride 108 mmol/L (98-107); Estimated Creatinine Clearance 101 ml/min; Glucose 152 mg/dl (70-99); Potassium 4.5 mmol/L (3.5-5.1); Sodium 141 mmol/L (135-145); Total Bilirubin 0.6 mg/dl (0.2-1.3); Total Protein 6.6 g/dl (6.3-8.2); eGFR > 60.00
[2024-03-02 05:34] LABS: Amphetamines Negative (Negative); Barbiturates Negative (Negative); Benzodiazepines Negative (Negative); Buprenorphine Negative (Negative); Cocaine Negative (Negative); Marijuana Negative (Negative); Methadone Negative (Negative); Methamphetamines Negative (Negative); Opiates Negative (Negative); Phencyclidine Negative (Negative); Tricyclic Antidepressants Negative (Negative)
[2024-03-02 05:39] LABS: Troponin I 0.046 ng/ml
[2024-03-02 05:59] LABS: % Basophils 0.7 % (0-2); % Eosinophils 1.4 % (0-6); % Immature Granulocytes 0.4 % (0-0.5); % Lymphocytes 19.2 % (20.5-51.1); % Monocytes 3.8 % (1.7-9.3); % Neutrophils 74.5 % (42.2-75.2); Absolute Basophils 0.1 10^3/uL (0-0.2); Absolute Eosinophils 0.1 10^3/uL (0-0.7); Absolute Lymphocytes 1.4 10^3/uL (1.2-3.4); Absolute Monocytes 0.3 10^3/uL (0.1-0.6); Absolute Neutrophils 5.3 10^3/uL (1.4-6.5); Hematocrit 36.8 % (37.0-47.0); Hemoglobin 11.5 g/dL (12.0-16.0); Mean Corp Hgb Conc. 31.3 g/dL (33.0-37.0); Mean Corpuscular Hgb 25.3 pg (27.0-31.0); Mean Corpuscular Volume 80.9 fL (81.0-99.0); Nucleated Red Blood Cells % 0 %; Platelet Count 336 10^3/uL (130-400); Red Blood Cell Count 4.55 10^6/uL (4.20-5.40); Red Cell Dist. Width 16.1 % (11.5-14.5); White Blood Cell Count 7.1 10^3/uL (4.8-10.8)
--- NOTE | 2024-03-02 07:27 | W.PN.HOSP.TC ---
Addendum entered and electronically signed by Charanjit Henao MD 03/02/24 20:39:
Attending Addendum-
I saw and evaluated the patient. I reviewed the resident�s note and agree with findings and plan as documented in the resident�s note. Sub: Patient can only stare but not following commands. Only moaning and groaning. No discernable speech. Full 12
point ROS reviewed and negative except as documented Exam: Vitals reviewed in chart GEN-NAD heart RRR 3/6 SM @ apex and RUSB lungs rhonchi at bases b/l abd soft NT ND pos BS LE- +1 b/l LE edema Neuro not following commands PERRLA b/l RUE hands
contracted
# TME
- secondary to infection vs cardiac etiology
- monitor closely in IMU
- MRI brain- 03/02- Multiple regions of old infarction Atrophy and significant leukomalacia.
No evidence for acute to subacute infarction. No evidence for acute intracranial hemorrhage
- urine tox - neg
- blood cx - p
# UTI
- check blood cx-P
- cont rocephin and doxy
- urine cx resulted sensi to rocephin
# Cardiomyopathy with episodes of bradycardia and NIMI
- ECHO 03/01-Severely reduced left ventricular systolic function. Global hypokinesis. Normal left ventricular wall thickness.
Left ventricular ejection fraction is 15-20%
- tsh and cortisol- wnl
- cards input appreciated
- trops have peaked
- restart coreg- bradycardia resolved. added lisinopril
- DC minoxidil
- monitor daily weights and strict I and O
# Transaminitis
- trending down
# CVA with residual aphasia, left hemiparesis
-Patient essential bedbound at baseline, uses lift to sit in a chair for a few hours a day
-Per family she eat regular food
-Continue Plavix as able
-poor QOL
-hospice appropriate
# Coronary Artery Disease s/p h/o Stent
- restart Plavix q 72
# Dysphagia
- VFSE completed
- start minced moist diet
- aspiration precautions
# Essential Hypertension
-restart coreg and DC minoxidil
-cont lisinopril
# Hyperlipidemia
-Continue atorvastatin
Diabetes Mellitus, Type II
-Hold NovoLog 70/30 restart incrementally as patients diet restarted
-Monitor sugars and continue coverage insulin
# Chronic Sacral Wounds
-continue wound care
# Normocytic Anemia
-Check iron, ferritin, tibc, folate and vit b12
DVT proph: SC Heparin
Code Status: DNR confirmed
Time spent coordinating care, review of plan of care with resident, personally reviewed records in EMR, med rec, consults, notes, labs, radiology, d/w nursing/POA � 61 mins
Original Note:
Today's Communication/Plan
-
Echo
Assessment / Plan
Assessment / Plan
Patient is 63-year-old female with past medical history of multiple strokes, CAD, hypertension, diabetes mellitus who presents to [facility] after an unresponsive episode. While being evaluated by her wound care nurse at home, patient was
noted to be unresponsive.
# Altered mental status possibly secondary to symptomatic bradycardia versus CVA versus R-sided pneumonia
Patient minimally/not responsive to sternal rub, name, opening eyes.
Patient has had multiple episodes of bradycardia with apnea. Continue to monitor for recurrent bradycardia
CT negative for acute brain bleed. MRI brain negative for subacute bleed or intracranial pathology
Urinalysis positive, culture positive for gram-negative bacilli
Started patient on Rocephin and macrolide
Urine tox negative
Negative for flu
MRSA pending
#Bilateral lower extremity edema
Peripheral vascular ultrasound negative
Echo shows EF of 15 to 20%
Pending cardiology recommendation
#CVA with residual aphasia, left hemiparesis
Bedbound at baseline, uses lift to sit in chair at home for few hours a day
Minimally/not responsive to stimuli in IMU
Continue Plavix in setting of multiple CVA history
VSE recommending IDDSI 5 with thin liquids and to utilize cough + for aspiration
Troponins peaked at 0.048
Cortisol normal 18.8
#CAD
Continue Plavix
#Essential hypertension
Hold antihypertensive medications
#Hyperlipidemia
Continue atorvastatin
#Diabetes mellitus
Hold NovoLog
Monitor sugars and continue sliding scale insulin
#Chronic sacral wounds
Continue wound care
# Normocytic anemia
Iron, TIBC, ferritin normal
B12 normal
Continue to monitor CBC
DVT prophylaxis subcu heparin
DNR
Anticipated Discharge: > 48 hours
Subjective/Interval History
-
Date of Service: March 02, 2024
Per nursing signout, patient was alert by the end of the day yesterday. Saying words like 'no' and 'ow.' This morning she remains unresponsive to name and sternal rub. Brain MRI was negative. Urine toxicology was negative.
Objective Data
-
Labs:
Laboratory Results
03/02/24
04:53
WBC 7.1
Hgb 11.5 L
Hct 36.8 L
Plt Count 336 D
Sodium 141
Potassium 4.5
Chloride 108 H
Carbon Dioxide 22
BUN 12
Creatinine 0.4 L
Glucose 152 H
Calcium 9.1
Total Bilirubin 0.6
AST 34
ALT 38 H
Alkaline Phosphatase 95
Vital Signs:
Vital Signs
Temp Pulse Resp BP Pulse Ox
98.2 F 71 22 143/76 98
03/02/24 04:32 03/02/24 06:00 03/02/24 06:00 03/02/24 06:00 03/02/24 06:00
I&O
03/01/24 03/02/24 03/03/24
06:59 06:59 06:59
Intake Total 600 / 600
Output Total 200 / 200
Balance 600 / 600 -200 / -200
Review of Systems
-
Unable to obtain full review of systems at this time due to: Patient Non-verbal
History Source: Patient
Physical Exam
-
General: Well Developed and Appears Chronically Ill
Cardiac: Regular Rhythm and S1/S2
GI: Soft, Nontender and Nondistended
Musculoskeletal: Edema, Right Lower Extrem and Edema, Left Lower Extrem
Skin: Warm and Dry
Neuro: Negative Awake, Alert or Oriented
Psych: Other (Asleep)
Data Reviewed
-
MRI: Report Reviewed by me
Medical Tests (Nuc Med, Echo etc): Report Reviewed by me
Labs: Labs Reviewed by me and Discussed with Physician
Old Records: Reviewed
[2024-03-02] MEDS: NSS 1000 IV (09:01)
[2024-03-02] MEDS: HEPARIN 5000 UNITS SC ×2 (09:02→21:16)
[2024-03-02] MEDS: NOVOLOG FLEXPEN-MODERATE RESISTANCE 1 UNITS SC ×2 (09:04→18:04)
[2024-03-02 09:14] LABS: Glucose - Point of Care 152 mg/dl (70-99)
[2024-03-02] MEDS: NIZORAL 2% CREAM 1 APPLIC TOPICAL ×2 (09:15→21:17)
[2024-03-02] MEDS: VIBRAMYCIN 260 MG IV ×2 (10:48→23:05)
--- NOTE | 2024-03-02 11:26 | PTCARENOTE ---
"Assumed care of patient at beginning of this shift from previous RN. Patient took time to arouse but then opened eyes and began moaning. BP 148/104. Patient repositioned and fed breakfast. She then appeared comfortable. Follow up bp 135/85. Dr Ortiz"Juliano and Dr Terry made aware; both rounded on patient and stated meds will be added/adjusted. Await new orders. See worklist for full assessment and vital signs."
[2024-03-02] MEDS: NOVOLOG FLEXPEN-MODERATE RESISTANCE 3 UNITS SC (11:48)
[2024-03-02 11:57] LABS: Glucose - Point of Care 224 mg/dl (70-99)
[2024-03-02] MEDS: ZESTRIL 10 MG PO (14:07)
--- NOTE | 2024-03-02 15:07 | W.PN.CARDCBS ---
Addendum entered and electronically signed by Linda Lange MD 03/02/24 15:35:
I saw and examined the patient.
The Strip Cleaner's note was reviewed and I agree with the note.
Comment: I spoke with the patient's at the bedside. Patient admitted with decreased level of responsiveness in the setting of known cognitive dysfunction. She is cared for by her at home. She has possible UTI/aspiration
pneumonia. She was diagnosed this admission with heart failure with severely reduced ejection fraction in the setting of known refractory hypertension for which the patient's 's starts, stops and decreases medications at times according to
blood pressure levels (sometimes her blood pressures drop) somewhat guided by primary care physician. They tell me primary care physician has left and they are going to establish care. She also has history of prior coronary disease. Troponin
levels are flat. EKG without acute abnormality.
Exam difficult for volume. Patient unable to give history. Legs are currently wrapped in soft padding.
I did explain that minoxidil can lead to heart failure and volume overload and I agree on admission with the discontinuation of this medication. I did explain to the patient's given heart failure/severely reduced ejection fraction that this
is not an ideal medication for the patient.
All questions answered today.
-Low-dose carvedilol started continue to follow heart rates and blood pressure.
-Daily dose lisinopril resume follow-up blood pressure.
-Follow labs.
-Follow telemetry with tendency towards bradycardia.
-Assess proBNP level.
Original Note:
Today's Communication / Plan
-
Coreg 3.125 mg BID
Lisinopril 10 mg daily
52 min face to face and coordination of care
Impression / Plan
-
PCP: Lorna Hale
Cardiology: Dr. Chen, last seen 2012
Impression:
Admitted with decreased level of responsiveness 02/29/24
Sinus bradycardia
Possible REYNA
Possible UTI
Possible aspiration PNA
B/L LE edema
Hypoalbuminemia
HTN
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
CAD s/p LAD PCI at [facility] 1999
Hyperlipidemia
DM 2
Sacral wound
Echo 05/24/2012: EF 55 to 60%, no WMA, moderate concentric LVH, normal RV size and function, mild MR
Echo 03/01/2024: EF 15 to 20%, global hypokinesis, stage III diastolic dysfunction, normal RV size and function, mild to moderate MR, aortic sclerosis without stenosis, moderate TR with PAP 69 mmHg, small pericardial effusion without evidence of
hemodynamic compromise
Plan:
-BPs noted. Patient with a h/o HTN that was multidrug resistant due to patient intolerances. At home prior to admission the patient's was giving doses of lisinopril 10 mg daily if SBP> 140, minoxidil 1.25 mg to 2.25 mg at bedtime plus an
additional 10 mg at bedtime as needed for elevated SBP and also Coreg 6.25 mg daily with additional dosing as needed SBP> 130.
-Coreg was on hold at time admission due to sinus bradycardia and thinking that unresponsive episodes might have been from bradycardia. Now appears to be TME so will restart Coreg standing dose 3.125 mg BID started by cardiology, orders placed.
-Would not use minoxidil with new diagnosis of CM.
-Lisinopril also being restarted at 10 mg daily.
-Echo noted above shows a newly diagnosed CM with EF 15 to 20%. She has global hypokinesis without clear WMA. New CM could be due to chronic HTN. Patient is not a candidate for ischemic evaluation. Medical therapy with Coreg and lisinopril as
noted above. Patient is also not a candidate for an ICD.
-LE edema noted. Check pro-BNP. CXR suggested right PNA, but no evidence of acute HF.
-Ongoing mental status changes do not correlate with bradycardia and appears more consistent with TME. No class I indication for PPM at this time.
-MRI brain showed old infarct, no new areas of infarct.
-Antibiotics ordered for possible UTI or aspiration PNA.
HPI: Patient came to ER from home after witnessed episodes of decreased levels of responsiveness and cardiology has been consulted for intermittent sinus bradycardia. Patient was previously followed by [facility] cardiology in 2013, but has not been
seen by our office since then. Patient has a cardiac history from back in the year 1999 and she was only 38 years old at that time, but had SOB and CURRAN and was admitted to [facility] and after serial Troponins that returned positive she went on
to have a cardiac catheterization at [facility]. In the year 1999 at [facility], she had an LAD PCI with 2 stents being placed and she took Plavix for 1 month prior to stopping it on her own due to dyspepsia.
She continued with aspirin. She continued with Cardiology care in at [facility] until 2005 when she had chest pain and completed an exercise nuclear stress test that was reportedly normal, but she was dissatisfied with her Cardiology care at that time
and stopped seeing that aircraft systems repairer. Patient then came to ER in 2012 with chest pain and after serially undetectable troponin levels completed Persantine nuclear stress test that showed no evidence of ischemia and was discharged to home.
Patient followed up in the cardiology office and had ongoing HTN and was overall frustrated with her symptoms and never returned to our office. Around that same time patient had also been referred to Nephrology and was last seen by them in the
office on 08/10/2012 and to quote a line directly from that consult, 'I simply do not know how it could be the case that she remains symptomatic due to hydralazine and I have no plausible logical explanation to explain her ongoing symptoms and have
tried every medication I can think of at this point and unfortunately patient has been intolerant of Norvasc, Avelox, clonidine, hydralazine of apparently Aldactone as well. Unfortunately I do not feel that I can help her at this point anymore as
I have no more options to explore and referred her to [place] for tertiary care.'It is unknown if patient ever followed up at a tertiary care center, but at some point she had multiple strokes and now has left-sided hemiparesis, aphasia and RUE
contraction, but despite this she continues to live at home with her who is her primary caregiver and is able to get the patient up OOB into a chair during the day and with the help of VNA and [employer] BUSINESS OBJECTS CONSULTANT he has been able to care for her within
their home. Wound care was asked to see the patient yesterday and she was noted to have an episode of decreased responsiveness and was brought to ER. Patient has had additional episodes and some have correlated to bradycardia, but other
episodes are not linked to bradycardia. Overnight telemetry and nursing notes reviewed and at one point patient was noted to be apneic and have bradycardia, but heart rate improved when nursing awakened the patient. There is no known diagnosis of
REYNA.
Progress Note - Lacquerer
Subjective
Date of Service: March 02, 2024
Unresponsive
Objective
Labs:
03/02/24 04:53
03/02/24 04:53
Labs
Hgb 11.5 g/dL (12.0-16.0) L 03/02/24 04:53
Hct 36.8 % (37.0-47.0) L 03/02/24 04:53
Plt Count 336 10^3/uL (130-400) D 03/02/24 04:53
Sodium 141 mmol/L (135-145) 03/02/24 04:53
Potassium 4.5 mmol/L (3.5-5.1) 03/02/24 04:53
BUN 12 mg/dl (7-17) 03/02/24 04:53
Creatinine 0.4 mg/dL (0.6-1.0) L 03/02/24 04:53
Glucose 152 mg/dl (70-99) H 03/02/24 04:53
Troponins
03/01/24 03/01/24 03/01/24
13:23 17:24 23:36
Troponin I 0.037 H* 0.047 H* D 0.048 H*
03/02/24
04:53
Troponin I 0.046 H*
Vital Signs and I&O:
Vital Signs
Temp Pulse Resp BP Pulse Ox
98.0 F 101 27 137/85 98
03/02/24 15:02 03/02/24 10:00 03/02/24 10:00 03/02/24 10:00 03/02/24 10:00
Vital Signs
Temp Pulse Resp BP Pulse Ox
98.0 F 101 27 137/85 98
03/02/24 15:02 03/02/24 10:00 03/02/24 10:00 03/02/24 10:00 03/02/24 10:00
Intake & Output
02/29/24 03/01/24 03/02/24 03/03/24
06:59 06:59 06:59 06:59
Intake Total 600 / 600
Output Total 200 / 200
Balance 600 / 600 -200 / -200
Physical Exam
Physical Exam
GEN: NAD.
HEENT: MMM
LUNGS: RA
CV: SR on tele
ABD: ND
EXT: +1 B/L LE edema
NEURO: left sided paralysis
SKIN: No rash
[2024-03-02 18:00] LABS: Glucose - Point of Care 174 mg/dl (70-99)
[2024-03-02] MEDS: ROCEPHIN 2000 MG IV (21:15)
[2024-03-02] MEDS: STERILE WATER FOR INJECTION 20 ML IV (21:15)
[2024-03-02] MEDS: COREG 3.125 MG PO (21:16)
[2024-03-02 22:01] LABS: Glucose - Point of Care 242 mg/dl (70-99)
[2024-03-03] VITALS (14 sets, daily range): BP systolic 130–179; BP diastolic 82–119; BMI 24.8
[2024-03-03 05:36] LABS: % Basophils 0.9 % (0-2); % Eosinophils 0.4 % (0-6); % Immature Granulocytes 0.5 % (0-0.5); % Lymphocytes 17.9 % (20.5-51.1); % Monocytes 5.9 % (1.7-9.3); % Neutrophils 74.4 % (42.2-75.2); Absolute Basophils 0.1 10^3/uL (0-0.2); Absolute Lymphocytes 1.5 10^3/uL (1.2-3.4); Absolute Monocytes 0.5 10^3/uL (0.1-0.6); Absolute Neutrophils 6.1 10^3/uL (1.4-6.5); Hematocrit 36.5 % (37.0-47.0); Hemoglobin 11.2 g/dL (12.0-16.0); Mean Corp Hgb Conc. 30.7 g/dL (33.0-37.0); Mean Corpuscular Hgb 25.1 pg (27.0-31.0); Mean Corpuscular Volume 81.8 fL (81.0-99.0); Mean Platelet Volume 10.2 fL (7.4-10.4); Nucleated Red Blood Cells % 0 %; Platelet Count 378 10^3/uL (130-400); Red Blood Cell Count 4.46 10^6/uL (4.20-5.40); Red Cell Dist. Width 16.3 % (11.5-14.5); White Blood Cell Count 8.2 10^3/uL (4.8-10.8)
[2024-03-03 05:57] LABS: ALT (SGPT) 35 U/L (0-35); AST (SGOT) 33 U/L (14-36); Albumin 3.4 g/dl (3.5-5.0); Alkaline Phosphatase 81 U/L (38-126); Blood Urea Nitrogen 21 mg/dl (7-17); Calcium 9.1 mg/dl (8.4-10.2); Carbon Dioxide 27 mmol/L (22-30); Chloride 109 mmol/L (98-107); Estimated Creatinine Clearance 101 ml/min; Glucose 205 mg/dl (70-99); Magnesium 2.2 mg/dl (1.6-2.3); Potassium 4.6 mmol/L (3.5-5.1); Sodium 143 mmol/L (135-145); Total Bilirubin 0.5 mg/dl (0.2-1.3); Total Protein 6.5 g/dl (6.3-8.2); eGFR > 60.00
[2024-03-03 06:06] LABS: NT-proBNP 21400 pg/ml
[2024-03-03 08:19] LABS: Glucose - Point of Care 194 mg/dl (70-99)
[2024-03-03] MEDS: COREG 3.125 MG PO ×2 (08:49→11:24)
[2024-03-03] MEDS: NOVOLOG FLEXPEN-MODERATE RESISTANCE 1 UNITS SC (08:49)
[2024-03-03] MEDS: HEPARIN 5000 UNITS SC ×2 (08:49→19:56)
[2024-03-03] MEDS: ZESTRIL 10 MG PO (08:49)
[2024-03-03] MEDS: NIZORAL 2% CREAM 1 APPLIC TOPICAL ×2 (08:49→20:01)
--- NOTE | 2024-03-03 09:33 | W.PN.HOSP.TC ---
Addendum entered and electronically signed by Carlee Terry DO, Resident 03/07/24 17:49:
Possible functional quadriplegia secondary to multiple CVA
Patient sits at chair at home but requires assistance with all daily tasks
Addendum entered and electronically signed by Charanjit Henao MD 03/03/24 18:06:
Attending Addendum-
I saw and evaluated the patient. I reviewed the resident�s note and agree with findings and plan as documented in the resident�s note. Sub: Patient seem a little more alert today. can only stare. not following commands consistently. No moaning and
groaning. No discernable speech. Full 12 point ROS reviewed and negative except as documented Exam: Vitals reviewed in chart GEN-NAD heart RRR 3/6 SM @ apex and RUSB lungs rales at bases b/l abd soft NT ND pos BS LE- +1 b/l LE edema Neuro not
following commands PERRLA b/l RUE hands contracted
# TME
- secondary to infection vs cardiac etiology
- monitor closely in IMU
- MRI brain- 03/02- Multiple regions of old infarction Atrophy and significant leukomalacia.
No evidence for acute to subacute infarction. No evidence for acute intracranial hemorrhage
- urine tox - neg
- blood cx - NGTD
# UTI
- check blood cx-NGTD
- cont rocephin
- urine cx proteus-sensi to rocephin
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
- PT OT as able
- poor QOL
- t/c pall care conversation
# Acute HFrEF exacerbation-New
- episodes of bradycardia and NIMI
- ECHO 03/01-Severely reduced left ventricular systolic function. Global hypokinesis. Normal left ventricular wall thickness.
Left ventricular ejection fraction is 15-20%
- lasix IV x 1
- cards input appreciated
- trops have peaked
- increase coreg- bradycardia resolved. cont lisinopril
- DC minoxidil
- monitor daily weights and strict I and O
# Transaminitis
- trending down
# CVA with residual aphasia, left hemiparesis
-functionally quad
-Continue Plavix
-poor QOL
-hospice appropriate
# Coronary Artery Disease s/p h/o Stent
- cont Plavix q 72
# Dysphagia
- VFSE completed
- cont minced moist diet
- aspiration precautions
# Essential Hypertension
-uncontrolled, increase coreg and DC minoxidil indefinitely
-cont lisinopril
# Hyperlipidemia
-Continue atorvastatin
Diabetes Mellitus, Type II
-restart NovoLog 70/30 at 1/2 dose home dose 20am/25pm
-Monitor sugars and continue coverage insulin
# Stage 4 coccyx pressure injury
- POA
- continue wound care, not well taken care of at home
# Normocytic Anemia
-follow CBC daily
DVT proph: SC Heparin
Code Status: DNR confirmed
Time spent coordinating care, review of plan of care with resident, personally reviewed records in EMR, med rec, consults, notes, labs, radiology, d/w nursing/POA � 59 mins
Original Note:
Today's Communication/Plan
-
Resume NovoLog 10 units twice daily
Start IV Lasix 20 mg once
Start Coreg 3.25 twice daily
Start lisinopril 10 mg daily
Assessment / Plan
Assessment / Plan
Patient is 63-year-old female with past medical history of multiple strokes, CAD, hypertension, diabetes mellitus who presents to [facility] after an unresponsive episode. While being evaluated by her wound care nurse at home, patient was
noted to be unresponsive.
# Altered mental status possibly secondary to symptomatic bradycardia versus CVA versus R-sided pneumonia
Patient minimally/not responsive to sternal rub, name, opening eyes.
Patient has had multiple episodes of bradycardia with apnea. Continue to monitor for recurrent bradycardia
CT negative for acute brain bleed. MRI brain negative for subacute bleed or intracranial pathology
Urinalysis positive, culture positive for gram-negative bacilli
Started patient on Rocephin and doxy
Urine tox negative
Negative for flu
MRSA negative
#HFrEF
Echo shows ejection fraction of 15 to 20%. BNp [id number]
Restart patient on Coreg 3.25 twice daily and lisinopril 10 daily.
Start patient on Lasix 20 IV for diuresis
Continue to monitor blood pressures
Cardiology following, appreciate input
#Bilateral lower extremity edema
Peripheral vascular ultrasound negative
Echo shows EF of 15 to 20%
Restart patient on Coreg 3.25 twice daily and lisinopril 10 daily.
Cardiology following, appreciate input
#CVA with residual aphasia, left hemiparesis
Bedbound at baseline, uses lift to sit in chair at home for few hours a day
Minimally/not responsive to stimuli in IMU
Continue Plavix in setting of multiple CVA history
VSE recommending IDDSI 5 with thin liquids and to utilize cough + for aspiration
Troponins peaked at 0.048
Cortisol normal 18.8
#CAD
Continue Plavix
#Essential hypertension
Hold antihypertensive medications
#Hyperlipidemia
Continue atorvastatin
#Diabetes mellitus
Sugars elevated to 240s
restart novolog 10 BID
Monitor sugars and continue sliding scale insulin
#Chronic sacral wounds
Continue wound care
# Normocytic anemia
Iron, TIBC, ferritin normal
B12 normal
Continue to monitor CBC
DVT prophylaxis subcu heparin
DNR
Anticipated Discharge: > 48 hours
Subjective/Interval History
-
Date of Service: March 03, 2024
This morning patient awoke to her name, did not require sternal rub. She was moaning and groaning which the nursing team and family believe is associated with hunger/thirst. Overnight patient's blood pressure remained in the 150-160 systolic. Her
blood sugar was elevated since resuming meals yesterday.
Objective Data
-
Labs:
Laboratory Results
03/03/24
05:17
WBC 8.2
Hgb 11.2 L
Hct 36.5 L
Plt Count 378
Sodium 143
Potassium 4.6
Chloride 109 H
Carbon Dioxide 27
BUN 21 H
Creatinine 0.5 L
Glucose 205 H
Calcium 9.1
Total Bilirubin 0.5
AST 33
ALT 35
Alkaline Phosphatase 81
Vital Signs:
Vital Signs
Temp Pulse Resp BP Pulse Ox
98.8 F 87 28 153/110 95
03/03/24 07:37 03/03/24 04:00 03/03/24 04:00 03/03/24 08:49 03/03/24 04:00
I&O
03/02/24 03/03/24 03/04/24
06:59 06:59 06:59
Output Total 200 / 200 425 / 425
Balance -200 / -200 -425 / -425
Review of Systems
-
Unable to obtain full review of systems at this time due to: Patient Non-verbal
Physical Exam
-
General: Appears Chronically Ill
Cardiac: Regular Rhythm and S1/S2
GI: Soft, Nontender and Nondistended
Musculoskeletal: Edema, Right Lower Extrem and Edema, Left Lower Extrem
Neuro: Awake
Psych: Calm
Data Reviewed
-
Labs: Labs Reviewed by me and Discussed with Physician
Old Records: Reviewed
--- NOTE | 2024-03-03 10:28 | W.PN.CARDCBS ---
Addendum entered and electronically signed by Linda Lange MD 03/03/24 11:40:
I saw and examined the patient.
The Hunting Sales Leader's note was reviewed and I agree with the note.
Comment: Clinically appears better overnight however volume status remains difficult given immobility and inability to communicate clearly. Newly diagnosed heart failure with reduced ejection fraction. Exam is difficult. Lower extremity edema
noted. Decreased breath sounds at the bases but is immobile. Heart distant heart sounds. Telemetry stable with short run of AIVR/NSVT which are asymptomatic. Continue conservative management. Continue treatment of blood pressure. proBNP level
was helpful at 21,000 suggesting volume overload.
Plan at this time:
Heart failure with reduced ejection fraction
-Continue conservative management
-Will give 1 dose of 20 mg of IV Lasix and see how she responds. Likely will need daily dose Lasix.
-Will increase carvedilol dose to 6.25 mg twice daily. Follow for bradycardia which was noted initially when septic on admission
-Continue lisinopril
-Have not added Aldactone given compliance related issues as an outpatient. Have not added SGLT2 inhibitor given UTIs, decubitus ulcers.
-Better blood pressure control
-Daily weights and input/output as able
-Avoid minoxidil which she was on initially
-Would not proceed with ischemic assessment at this time (troponin not significantly elevated, 0.048)
-Continue to follow telemetry
Infectious related issues and chronic condition managed by primary service.
Original Note:
Today's Communication / Plan
-
Lasix 20 mg IV x1 now
Coreg 3.125 mg BID restarted last night and lisinopril 10 mg daily started yesterday, follow BP and might need to increase doses
53 min face to face and coordination of care
Impression / Plan
-
PCP: Lorna Hale
Cardiology: Dr. Chen, last seen 2012
Impression:
Admitted with decreased level of responsiveness 02/29/24
Sinus bradycardia
Possible REYNA
Possible UTI
Possible aspiration PNA
B/L LE edema
Hypoalbuminemia
HTN
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
CAD s/p LAD PCI at [place] [id number]
Hyperlipidemia
DM 2
Sacral wound
Acute HFrEF
Echo 05/24/2012: EF 55 to 60%, no WMA, moderate concentric LVH, normal RV size and function, mild MR
Echo 03/01/2024: EF 15 to 20%, global hypokinesis, stage III diastolic dysfunction, normal RV size and function, mild to moderate MR, aortic sclerosis without stenosis, moderate TR with PAP 69 mmHg, small pericardial effusion without evidence of
hemodynamic compromise
Plan:
-Overnight and morning BPs reviewed with nursing 03/03/24. BP 153/110 at time of morning meds. Lisinopril 10 mg daily and Coreg 3.125 mg BID doses given. Will follow up on BP.
-Ongoing LE edema noted. EF 15-20%. Outpatient dose of minoxidil stopped. Will try a dose of Lasix 20 mg IV x1 and assess response.
-At home prior to admission the patient's was giving doses of lisinopril 10 mg daily if SBP> 140, minoxidil 1.25 mg to 2.25 mg at bedtime plus an additional 10 mg at bedtime as needed for elevated SBP and also Coreg 6.25 mg daily with
additional dosing as needed SBP> 130.
-Echo noted above shows a newly diagnosed CM with EF 15 to 20%. She has global hypokinesis without clear WMA. New CM could be due to chronic HTN. Patient is not a candidate for ischemic evaluation. Patient is also not a candidate for an ICD.
-Ongoing mental status changes do not correlate with bradycardia and appears more consistent with TME. No class I indication for PPM at this time. Coreg was on hold at time admission due to sinus bradycardia, but then restarted.
-MRI brain showed old infarct, no new areas of infarct.
-Tele reviewed by me 03/03/24 and strip labeled NSVT might be AIVR. Will review with attending. No bradycardia otherwise.
-Antibiotics ordered for possible UTI or aspiration PNA.
HPI: Patient came to ER from home after witnessed episodes of decreased levels of responsiveness and cardiology has been consulted for intermittent sinus bradycardia. Patient was previously followed by [facility] cardiology in 2013, but has not been
seen by our office since then. Patient has a cardiac history from back in the year 1999 and she was only 38 years old at that time, but had SOB and CURRAN and was admitted to [facility] and after serial Troponins that returned positive she went on
to have a cardiac catheterization at [facility]. In the year 1999 at [facility], she had an LAD PCI with 2 stents being placed and she took Plavix for 1 month prior to stopping it on her own due to dyspepsia.
She continued with aspirin. She continued with Cardiology care in at [facility] until 2005 when she had chest pain and completed an exercise nuclear stress test that was reportedly normal, but she was dissatisfied with her Cardiology care at that time
and stopped seeing that compensation and benefits administrator. Patient then came to ER in 2012 with chest pain and after serially undetectable troponin levels completed Persantine nuclear stress test that showed no evidence of ischemia and was discharged to home.
Patient followed up in the cardiology office and had ongoing HTN and was overall frustrated with her symptoms and never returned to our office. Around that same time patient had also been referred to Nephrology and was last seen by them in the
office on 08/10/2012 and to quote a line directly from that consult, 'I simply do not know how it could be the case that she remains symptomatic due to hydralazine and I have no plausible logical explanation to explain her ongoing symptoms and have
tried every medication I can think of at this point and unfortunately patient has been intolerant of Norvasc, Avelox, clonidine, hydralazine of apparently Aldactone as well. Unfortunately I do not feel that I can help her at this point anymore as
I have no more options to explore and referred her to [facility] for tertiary care.'It is unknown if patient ever followed up at a tertiary care center, but at some point she had multiple strokes and now has left-sided hemiparesis, aphasia and RUE
contraction, but despite this she continues to live at home with her who is her primary caregiver and is able to get the patient up OOB into a chair during the day and with the help of VNA and TELESERVICES REPRESENTATIVE he has been able to care for her within
their home. Wound care was asked to see the patient yesterday and she was noted to have an episode of decreased responsiveness and was brought to ER. Patient has had additional episodes and some have correlated to bradycardia, but other
episodes are not linked to bradycardia. Overnight telemetry and nursing notes reviewed and at one point patient was noted to be apneic and have bradycardia, but heart rate improved when nursing awakened the patient. There is no known diagnosis of
REYNA.
Progress Note - Manufacturing Group Leader
Subjective
Date of Service: March 03, 2024
Awake and alert, moaning whenever stethoscope placed on chest
Objective
Labs:
03/03/24 05:17
03/03/24 05:17
Labs
Hgb 11.2 g/dL (12.0-16.0) L 03/03/24 05:17
Hct 36.5 % (37.0-47.0) L 03/03/24 05:17
Plt Count 378 10^3/uL (130-400) 03/03/24 05:17
Sodium 143 mmol/L (135-145) 03/03/24 05:17
Potassium 4.6 mmol/L (3.5-5.1) 03/03/24 05:17
BUN 21 mg/dl (7-17) H 03/03/24 05:17
Creatinine 0.5 mg/dL (0.6-1.0) L 03/03/24 05:17
Glucose 205 mg/dl (70-99) H 03/03/24 05:17
Troponins
03/01/24 03/01/24 03/01/24
13:23 17:24 23:36
Troponin I 0.037 H* 0.047 H* D 0.048 H*
03/02/24
04:53
Troponin I 0.046 H*
Vital Signs and I&O:
Vital Signs
Temp Pulse Resp BP Pulse Ox
98.8 F 87 28 153/110 95
03/03/24 07:37 03/03/24 04:00 03/03/24 04:00 03/03/24 08:49 03/03/24 04:00
Vital Signs
Temp Pulse Resp BP Pulse Ox
98.8 F 87 28 153/110 95
03/03/24 07:37 03/03/24 04:00 03/03/24 04:00 03/03/24 08:49 03/03/24 04:00
Intake & Output
03/01/24 03/02/24 03/03/24 03/04/24
06:59 06:59 06:59 06:59
Intake Total 600 / 600
Output Total 200 / 200 425 / 425
Balance 600 / 600 -200 / -200 -425 / -425
Physical Exam
Physical Exam
GEN: NAD. Awake and alert
HEENT: MMM
LUNGS: RA, clear anterolaterally without wheeze
CV: SR on tele. Reg
ABD: ND
EXT: +1 B/L LE edema
NEURO: left sided paralysis
SKIN: No rash
--- NOTE | 2024-03-03 11:04 | PTCARENOTE ---
Assumed care of patient at beginning of this shift from previous RN. BP elevated 153/110; bp has been elevated overnight and yesterday. Patient was started on lisinopril and coreg yesterday. Morning meds given as ordered. BP 161/108 after meds.
hall monitor alarmed vtach: wide complex with PVC noted. Patient appeared to be asymptomatic as no change noted. She is non-verbal but moans occasionally, and will say 'no' on occasion. Misty Pedroza in to see patient this morning; sent picture
of strips that printed. She stated she will also notify Dr Linda Lange. Order entered for Lasix 20mg IV.
[2024-03-03] MEDS: LASIX 20 MG IV (11:16)
[2024-03-03] MEDS: VIBRAMYCIN 260 MG IV ×2 (11:16→22:36)
[2024-03-03] MEDS: NOVOLOG FLEXPEN-MODERATE RESISTANCE 5 UNITS SC ×2 (12:44→17:22)
[2024-03-03 12:53] LABS: Glucose - Point of Care 295 mg/dl (70-99)
--- NOTE | 2024-03-03 13:31 | WOUNDNOTE ---
COCCYX (with photo flash)
--- NOTE | 2024-03-03 13:44 | WOUNDNOTE ---
[facility] RN note: Patient admitted with chronic coccyx stage 4 pressure injury. Patient's spouse stated she's had for 5 years. Wound with yellow slough in base. Suspect she has chronic osteomyelitis. Patient incontinent of urine. Pili care given.
Coccyx/buttocks dressing changed. Silicone border foam changed on L ischium. Patient turned to L lateral 30 degree turn with help from RN Educator Raymundo.
--- NOTE | 2024-03-03 13:45 | WOUNDNOTE ---
[facility] RN note: Patient admitted with chronic coccyx stage 4 pressure injury. Patient's spouse stated she's had for 5 years. Wound with yellow/white slough in base. Suspect she has chronic osteomyelitis. Patient incontinent of urine. Pili care given.
Coccyx/buttocks dressing changed. Silicone border foam changed on L ischium. Patient turned to L lateral 30 degree turn with help from RN Educator Raymundo. R heel foam dressing changed. R heel blanchable red and what looks like a small sadler dry skin
area. Heels off bed with TruVue lite boots. Patient is on a [employer] Max air bed. Spouse stated she is current with and a client success specialist visits weekly. Spouse said patient has a [place] bed at home. ST in to see patient at end of visit.
Updated Dr. Terry re: chronic stage 4 coccyx ulcer with probable chronic osteomyelitis. Hospitalist resident approved local wound care. Updated GIDEON Mckeon. Care plan and discharge instructions updated. Will follow as needed.
--- NOTE | 2024-03-03 14:08 | WOUNDNOTE ---
Patient at risk for worsening and/or additional pressure injuries despite preventative measures in place d/t overall medical condition, HOB needs to be elevated d/t aspiration risk.
--- NOTE | 2024-03-03 15:08 | CM ---
Patient with Hx CVA with residual aphasia, left hemiparesis who presented to hospital after episode unresponsiveness. Brain MRI - no acute stroke. Room air. Receiving IV Abx. ST - dysphagia diet. Seen by wound care nurse. Per nursing;
non-verbal but moans occasionally.
As per prior CM notes; patient bedbound at baseline with caregiver services in place.
Message to Dr Huizar inquiring on the goals of care.
CM continuing to follow.
Plan TBD.
--- NOTE | 2024-03-03 16:51 | PN.CDI ---
CDI
- -
CDI:
Physician Documentation Request
Admit Date: 02/29/24 17:48
Dear Doctor Juliano/Resident,
Please review the following and provide your response in the progress notes.
Clinical Indicators:
Pt admitted with AMS /TME 2/2 Aspiration PNA and possible UTI
Documented in the record, ' #Chronic sacral wounds...'
Documented per [facility] note 03/03, ' Patient admitted with chronic coccyx stage 4 pressure injury. Patient's spouse stated she's had for 5 years. Wound with yellow/white slough in base. Suspect she has chronic osteomyelitis. ... dressings changed...'
Physician documentation of the type and location of wounds is required for compliant documentation. Based on the above clinical findings and your assessment, please provide the following in your progress note:
1. Location of the ulcer/wound, including laterality.
2. Type (etiology) of ulcer/wound:
- Pressure (decubitus) ulcer
- Non-pressure ulcer
- Other
Use of terms such as suspected, likely, concern for, or probable (associated with a specific diagnosis that is being evaluated, monitored, or treated as if it exists) are acceptable and can be coded in the inpatient setting, when documented at the
time of discharge.
Thank you,
Laura Butler RN
CDI Specialist
[place] [facility]
Please use your independent medical judgment in providing your response.
*Source: National Pressure Ulcer Advisory Panel (NPUAP)
--- NOTE | 2024-03-03 17:00 | PN.CDI ---
CDI
- -
CDI:
Physician Documentation Request
Admit Date: 02/29/24 17:48
Dear Doctor Juliano/Resident ,
Please review the following and provide your response in the progress notes.
Clinical Indicators:
Pt admitted with AMS /TME 2/2 Aspiration PNA and possible UTI
Documented per ED, ' Patient is chronically bedbound and aphasic after suffering a left-sided CVA many years ago. She is cared for at home by her with the help of visiting nurses....'
Documented per H&P, ' Neuro: Other (Aphasic and Left Hemiparesis at baseline...'
Documented per nutrition panel level of feeding complete
Documented per nursing assessment 03/03 activity level complete ..mouth care complete ...'
Please provide in your note the diagnosis associated with the pts functional status:
Functional Quadriplegia- complete immobility due to severe physical disability or frailty
Weakness only
Other ( please specify)
Use of terms such as suspected, likely, concern for, or probable (associated with a specific diagnosis that is being evaluated, monitored, or treated as if it exists) are acceptable and can be coded in the inpatient setting, when documented at the
time of discharge.
Thank you,
Laura Butler RN
CDI Specialist
[place] [facility]
Please use your independent medical judgment in providing your response.
[2024-03-03 17:31] LABS: Glucose - Point of Care 281 mg/dl (70-99)
[2024-03-03] MEDS: NOVOLOG MIX 70/30 FLEXPEN 10 UNITS SC (18:22)
[2024-03-03] MEDS: COREG 6.25 MG PO (19:57)
--- NOTE | 2024-03-03 20:30 | PTCARENOTE ---
Assumed care of Pt from dayshift RN. Pt opens eyes to verbal stimuli. Moaning and saying 'no' at times. Pt took HS pills whole in apple sauce. NSR on monitor with occasional pvc's. BP remains elevated. 167/95, HS coreg admin per order, see MAR.
Assessment as documented. Safe environment maintained.
[2024-03-03 21:21] LABS: Glucose - Point of Care 268 mg/dl (70-99)
[2024-03-03] MEDS: STERILE WATER FOR INJECTION 20 ML IV (22:35)
[2024-03-03] MEDS: ROCEPHIN 2000 MG IV (22:35)
[2024-03-04] VITALS (15 sets, daily range): BP systolic 134–168; BP diastolic 77–124; BMI 25.4
[2024-03-04 05:40] LABS: % Basophils 0.6 % (0-2); % Eosinophils 0.7 % (0-6); % Immature Granulocytes 0.4 % (0-0.5); % Lymphocytes 13.4 % (20.5-51.1); % Monocytes 5.8 % (1.7-9.3); % Neutrophils 79.1 % (42.2-75.2); Absolute Basophils 0.1 10^3/uL (0-0.2); Absolute Eosinophils 0.1 10^3/uL (0-0.7); Absolute Lymphocytes 1.3 10^3/uL (1.2-3.4); Absolute Monocytes 0.6 10^3/uL (0.1-0.6); Absolute Neutrophils 7.6 10^3/uL (1.4-6.5); Hematocrit 36.2 % (37.0-47.0); Hemoglobin 10.9 g/dL (12.0-16.0); Mean Corp Hgb Conc. 30.1 g/dL (33.0-37.0); Mean Corpuscular Hgb 24.9 pg (27.0-31.0); Mean Corpuscular Volume 82.8 fL (81.0-99.0); Mean Platelet Volume 10.4 fL (7.4-10.4); Nucleated Red Blood Cells % 0 %; Platelet Count 353 10^3/uL (130-400); Red Blood Cell Count 4.37 10^6/uL (4.20-5.40); Red Cell Dist. Width 16.5 % (11.5-14.5); White Blood Cell Count 9.6 10^3/uL (4.8-10.8)
[2024-03-04 06:01] LABS: ALT (SGPT) 38 U/L (0-35); AST (SGOT) 34 U/L (14-36); Albumin 3.3 g/dl (3.5-5.0); Alkaline Phosphatase 78 U/L (38-126); Blood Urea Nitrogen 31 mg/dl (7-17); Carbon Dioxide 28 mmol/L (22-30); Chloride 111 mmol/L (98-107); Estimated Creatinine Clearance 101 ml/min; Glucose 218 mg/dl (70-99); Magnesium 2.1 mg/dl (1.6-2.3); Potassium 4.4 mmol/L (3.5-5.1); Sodium 146 mmol/L (135-145); Total Bilirubin 0.4 mg/dl (0.2-1.3); Total Protein 6.1 g/dl (6.3-8.2); eGFR > 60.00
--- NOTE | 2024-03-04 07:42 | W.PN.HOSP.TC ---
Addendum entered and electronically signed by Charanjit Henao MD 03/04/24 18:54:
Attending Addendum-
I saw and evaluated the patient. I reviewed the resident�s note and agree with findings and plan as documented in the resident�s note. Sub: patient not following commands consistently. No discernable speech.just groans. NAEON. Full 12 point ROS
reviewed and negative except as documented Exam: Vitals reviewed in chart GEN-NAD heart RRR 3/6 SM @ apex and RUSB lungs rales at bases b/l abd soft NT ND pos BS LE- +1 b/l LE edema Neuro not following commands PERRLA b/l RUE hands contracted
# TME
- secondary to infection vs cardiac etiology
- monitor closely in IMU
- MRI brain- 03/02- Multiple regions of old infarction Atrophy and significant leukomalacia.
No evidence for acute to subacute infarction. No evidence for acute intracranial hemorrhage
- urine tox - neg
- blood cx - NGTD
- nearing baseline- overall poor QOL
#PNA
- cont Rocephin and doxy day 05/23
# UTI
- blood cx-NGTD
- urine cx proteus-cont abx day 05/23
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
- PT OT as able
- poor QOL
- t/c pall care- unrealistic
# Acute HFrEF exacerbation-New
- episodes of bradycardia and NIMI
- ECHO 03/01-Severely reduced left ventricular systolic function. Global hypokinesis. Normal left ventricular wall thickness.
Left ventricular ejection fraction is 15-20%
- start lasix IV daily
- cards input appreciated
- trops have peaked
- uptitrate coreg as able
- increase lisinopril
- add spirinolactone
- DC minoxidil
- monitor daily weights and strict I and O
# Hypernatremia
- mild
- cont to monitor
- repeat BMP in am
# CVA with residual aphasia, left hemiparesis
-functionally quad
-Continue Plavix
-poor QOL
-hospice appropriate
# Coronary Artery Disease s/p h/o Stent
- cont Plavix q 72
# Dysphagia
- changed to NPO 03/04 after reeval
- apparently eating regular food at home?
- aspiration precautions
- reeval in 24 hours
# Essential Hypertension
- uncontrolled
- increase coreg
- DC minoxidil indefinitely
- increase lisinopril
- add spironolactone
# Hyperlipidemia
-Continue atorvastatin
Diabetes Mellitus, Type II
-hold NovoLog 70/30 due to being NPO, home dose 20am/25pm
-Monitor sugars and continue coverage insulin
# Stage 4 coccyx pressure injury
- POA
- continue wound care, not well taken care of at home
# Normocytic Anemia
-follow CBC daily
DVT proph: SC Heparin
Code Status: DNR confirmed
Time spent coordinating care, review of plan of care with resident, personally reviewed records in EMR, med rec, consults, notes, labs, radiology, d/w nursing/POA � 52 mins
Original Note:
Today's Communication/Plan
-
;/
Assessment / Plan
Assessment / Plan
Assessment/plan
#Toxic metabolic encephalopathy secondary to infectious etiology versus cardiac
-MRI brain 03/02-no evidence of acute to subacute infarction, no evidence of acute intracranial hemorrhage. Multiple regions of old infarction atrophy and significant leukomalacia.
-Urine toxicology negative
-Blood cultures negative to date
# Urinary tract infection
-Urine culture Proteus mirabilis
-Continue Rocephin, doxycycline
#Acute HFrEF
-Echocardiogram 03/01- Severely reduced left ventricular systolic function. Global hypokinesis. Normal left ventricular wall thickness. Left ventricular ejection fraction is 15-20%
-Given 20 mg of IV Lasix yesterday by cards, now on 40 mg IV Lasix daily
-GDMT therapy, although avoid SGLT2i given history of UTIs, decubitus ulcer
-Continue Coreg, lisinopril, spironolactone
-Daily weights, I's and O's
-Avoid minoxidil
# Transaminitis
-Trend LFTs
#CVA with residual aphasia, left hemiparesis
-Bedbound at baseline, uses lift to sit in chair at home for few hours a day
-Continue Plavix
-Hospice appropriate
-Per speech evaluation -high risk for aspiration, keep n.p.o.
# Essential hypertension
-Continue Coreg, lisinopril, spironolactone
#Hyperlipidemia
-Continue atorvastatin
#T2DM
-Hold NovoLog 70/30
-Monitor glucose levels, coverage with SSI
#Stage 4 coccyx pressure injury POA
-continue wound care
#Normocytic Anemia
-Follow CBC
DVT prophylaxis; heparin subcu
CODE STATUS ; DNR
Anticipated Discharge: > 48 hours
Subjective/Interval History
-
Date of Service: March 04, 2024
Objective Data
-
Labs:
Laboratory Results
03/04/24
05:28
WBC 9.6
Hgb 10.9 L
Hct 36.2 L
Plt Count 353
Sodium 146 H
Potassium 4.4
Chloride 111 H
Carbon Dioxide 28
BUN 31 H
Creatinine 0.6
Glucose 218 H
Calcium 9.0
Total Bilirubin 0.4
AST 34
ALT 38 H
Alkaline Phosphatase 78
Vital Signs:
Vital Signs
Temp Pulse Resp BP Pulse Ox
97.8 F 79 22 151/94 99
03/04/24 07:17 03/04/24 06:00 03/04/24 06:00 03/04/24 06:00 03/04/24 06:00
I&O
03/03/24 03/04/24 03/05/24
06:59 06:59 06:59
Intake Total 260 / 260
Output Total 425 / 425 150 / 150
Balance -425 / -425 110 / 110
Review of Systems
-
All other systems: Reviewed and negative (Except as documented)
Physical Exam
-
General: Appears Chronically Ill
Respiratory: Crackles (Bilateral bases)
Cardiac: S1/S2
GI: Soft and Nondistended
Musculoskeletal: Other (2+ edema bilaterally)
[2024-03-04 08:14] LABS: Glucose - Point of Care 194 mg/dl (70-99)
[2024-03-04] MEDS: ZESTRIL PO (09:05)
[2024-03-04] MEDS: COREG 6.25 MG PO ×2 (09:13→20:31)
[2024-03-04] MEDS: ZESTRIL 20 MG PO (09:14)
[2024-03-04] MEDS: PLAVIX 75 MG PO (09:15)
[2024-03-04] MEDS: HEPARIN 5000 UNITS SC ×2 (09:16→20:32)
[2024-03-04] MEDS: NIZORAL 2% CREAM 1 APPLIC TOPICAL ×2 (09:16→21:08)
[2024-03-04] MEDS: NOVOLOG MIX 70/30 FLEXPEN 10 UNITS SC (09:17)
[2024-03-04] MEDS: NOVOLOG FLEXPEN-MODERATE RESISTANCE 1 UNITS SC ×2 (09:17→23:53)
[2024-03-04] MEDS: VIBRAMYCIN 260 MG IV (09:18)
--- NOTE | 2024-03-04 10:20 | W.PN.CARDCBS ---
Today's Communication / Plan
-
Cont IV lasix, follow Cr
Agree with BB/BETITO given newly reduced LVEF
Add spironolactone
Impression / Plan
-
PCP: Lorna Hale
Cardiology: Dr. Chen, last seen 2012
Impression:
Admitted with decreased level of responsiveness 02/29/24
Sinus bradycardia
Possible REYNA
Possible UTI
Possible aspiration PNA
B/L LE edema
Hypoalbuminemia
HTN
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
CAD s/p LAD PCI at [facility] 1999
Hyperlipidemia
DM 2
Sacral wound
Acute HFrEF
Echo 05/24/2012: EF 55 to 60%, no WMA, moderate concentric LVH, normal RV size and function, mild MR
Echo 03/01/2024: EF 15 to 20%, global hypokinesis, stage III diastolic dysfunction, normal RV size and function, mild to moderate MR, aortic sclerosis without stenosis, moderate TR with PAP 69 mmHg, small pericardial effusion without evidence of
hemodynamic compromise
Plan:
-Presents with AMS found to have newly diagnosed CM with EF 15-20%
-ProBNP elevated to 21k c/w decompensated HF
-Agree with IV lasix, will likely need daily maintenance dosing on discharge
-Follow daily weights, Cr/electrolyes
-BP remains elevated this AM. New CM could be due to chronic HTN.
-Agree with Lisinopril/Coreg given reduced LVEF
-Add spironolactone
-Avoid SGLT2 d/t decubitus ulcers
-Consider hydralazine as additional agent for afterload
-Troponin is mildly elevated but flat
-Unable to assess for chest discomfort
-ECG with nonspecific T wave changes
-Suspect nonischemic myocardial injury troponin elevation in the setting of CHF
HPI: Patient came to ER from home after witnessed episodes of decreased levels of responsiveness and cardiology has been consulted for intermittent sinus bradycardia. Patient was previously followed by [facility] cardiology in 2013, but has not been
seen by our office since then. Patient has a cardiac history from back in the year 1999 and she was only 38 years old at that time, but had SOB and CURRAN and was admitted to [facility] and after serial Troponins that returned positive she went on
to have a cardiac catheterization at [facility]. In the year [address] [facility], she had an LAD PCI with 2 stents being placed and she took Plavix for 1 month prior to stopping it on her own due to dyspepsia.
She continued with aspirin. She continued with Cardiology care in at [facility] until 2005 when she had chest pain and completed an exercise nuclear stress test that was reportedly normal, but she was dissatisfied with her Cardiology care at that time
and stopped seeing that time clock repairer. Patient then came to ER in 2012 with chest pain and after serially undetectable troponin levels completed Persantine nuclear stress test that showed no evidence of ischemia and was discharged to home.
Patient followed up in the cardiology office and had ongoing HTN and was overall frustrated with her symptoms and never returned to our office. Around that same time patient had also been referred to Nephrology and was last seen by them in the
office on 08/10/2012 and to quote a line directly from that consult, 'I simply do not know how it could be the case that she remains symptomatic due to hydralazine and I have no plausible logical explanation to explain her ongoing symptoms and have
tried every medication I can think of at this point and unfortunately patient has been intolerant of Norvasc, Avelox, clonidine, hydralazine of apparently Aldactone as well. Unfortunately I do not feel that I can help her at this point anymore as
I have no more options to explore and referred her to [facility] for tertiary care.'It is unknown if patient ever followed up at a tertiary care center, but at some point she had multiple strokes and now has left-sided hemiparesis, aphasia and RUE
contraction, but despite this she continues to live at home with her who is her primary caregiver and is able to get the patient up OOB into a chair during the day and with the help of VNA and SENIOR CONSTRUCTION PROJECT MANAGER he has been able to care for her within
their home. Wound care was asked to see the patient yesterday and she was noted to have an episode of decreased responsiveness and was brought to ER. Patient has had additional episodes and some have correlated to bradycardia, but other
episodes are not linked to bradycardia. Overnight telemetry and nursing notes reviewed and at one point patient was noted to be apneic and have bradycardia, but heart rate improved when nursing awakened the patient. There is no known diagnosis of
REYNA.
Progress Note - Underwriting Manager
Subjective
Date of Service: March 04, 2024
No acute overnight event. Patient is nonverbal, I am told that this is her baseline. Appears to be resting comfortably in the IMU. Requiring supplemental oxygen at this time.
Objective
Labs:
03/04/24 05:28
03/04/24 05:28
Labs
Hgb 10.9 g/dL (12.0-16.0) L 03/04/24 05:28
Hct 36.2 % (37.0-47.0) L 03/04/24 05:28
Plt Count 353 10^3/uL (130-400) 03/04/24 05:28
Sodium 146 mmol/L (135-145) H 03/04/24 05:28
Potassium 4.4 mmol/L (3.5-5.1) 03/04/24 05:28
BUN 31 mg/dl (7-17) H 03/04/24 05:28
Creatinine 0.6 mg/dL (0.6-1.0) 03/04/24 05:28
Glucose 218 mg/dl (70-99) H 03/04/24 05:28
Troponins
03/01/24 03/01/24 03/01/24
13:23 17:24 23:36
Troponin I 0.037 H* 0.047 H* D 0.048 H*
03/02/24
04:53
Troponin I 0.046 H*
Vital Signs and I&O:
Vital Signs
Temp Pulse Resp BP Pulse Ox
97.8 F 95 22 157/107 99
03/04/24 07:17 03/04/24 09:14 03/04/24 06:00 03/04/24 09:14 03/04/24 06:00
Vital Signs
Temp Pulse Resp BP Pulse Ox
97.8 F 95 22 157/107 99
03/04/24 07:17 03/04/24 09:14 03/04/24 06:00 03/04/24 09:14 03/04/24 06:00
Intake & Output
03/02/24 03/03/24 03/04/24 03/05/24
06:59 06:59 06:59 06:59
Intake Total 260 / 260
Output Total 200 / 200 425 / 425 150 / 150
Balance -200 / -200 -425 / -425 110 / 110
Physical Exam
Physical Exam
Gen: NAD, awake
HEENT: NC/AT, sclera anicteric
Neck: No JVD
CV: RRR, NL s1/s2, no M/R/G
Lungs: No increased WOB on 2L NC
Abd: S/ND
Ext: Trace LE edema
Skin: Warm, dry
Neuro: Non-verbal
[2024-03-04] MEDS: LASIX 40 MG IV (11:46)
[2024-03-04] MEDS: SENOKOT-S 1 TABLET PO (11:46)
[2024-03-04] MEDS: ALDACTONE 25 MG PO (11:46)
[2024-03-04] MEDS: NOVOLOG FLEXPEN-MODERATE RESISTANCE 3 UNITS SC ×2 (11:49→17:55)
[2024-03-04 11:59] LABS: Glucose - Point of Care 215 mg/dl (70-99)
--- NOTE | 2024-03-04 15:58 | PTOTSP ---
SPEECH THERAPY SWALLOW FOLLOW UP NOTE:
Patient continues to exhibit clinical signs of oropharyngeal dysphagia, likely chronic related to history of CVA and acutely exacerbated by UTI/TME. Patient remains at HIGH RISK for aspiration and related complications given cognitive status and
severity of oropharyngeal dysphagia. Recommend temporary NPO at this time; Recommend only crushed medications in puree with RN IF AWAKE AND ALERT; otherwise hold on oral medications at the time and consider non-oral medications. Recommend ST to
follow and re-assess in 24 hours. Patient also unlikely to be able to meet nutritional meeds at this time. Consider temporary alternate means for nutrition/medication/hydration. Consider repeat CXR.
RECOMMEND:
1) NPO; Consider non-oral nutrition/hydration
2) Only necessary meds crushed in puree at RN discretion only when awake/alert
2) ST to re-assess in 24 hours
[2024-03-04] MEDS: NOVOLOG FLEXPEN-MODERATE RESISTANCE SC (17:26)
[2024-03-04 17:52] LABS: Glucose - Point of Care 235 mg/dl (70-99)
--- NOTE | 2024-03-04 18:14 | PTCARENOTE ---
Patient is nonverbal at baseline. Patient occasionally says 'no'. L side paralysis and R hand contraction d/t hx of stroke. Patient on 2L NC. BP elevated throughout shift. Cardiology and hospitalist aware. Purewick in place d/t patient incontinent
and wounds on sacrum. Wound care completed per order. See MAR for bowel regimen. Patient NPO. Call johnson within reach, bed in lowest position, and bed of wheels locked.
[2024-03-04] MEDS: VIBRAMYCIN 100 MG PO (20:32)
[2024-03-04] MEDS: STERILE WATER FOR INJECTION 20 ML IV (21:08)
[2024-03-04] MEDS: ROCEPHIN 2000 MG IV (21:08)
[2024-03-04 23:49] LABS: Glucose - Point of Care 174 mg/dl (70-99)
[2024-03-05] VITALS (13 sets, daily range): BP systolic 124–158; BP diastolic 73–113; BMI 24.4
[2024-03-05] MEDS: NOVOLOG FLEXPEN-MODERATE RESISTANCE 1 UNITS SC ×2 (05:09→18:42)
[2024-03-05 05:11] LABS: Glucose - Point of Care 189 mg/dl (70-99)
[2024-03-05 05:59] LABS: Hemoglobin 11.3 g/dL (12.0-16.0); Mean Corp Hgb Conc. 29.7 g/dL (33.0-37.0); Mean Corpuscular Hgb 25.2 pg (27.0-31.0); Mean Corpuscular Volume 84.6 fL (81.0-99.0); Mean Platelet Volume 10.2 fL (7.4-10.4); Platelet Count 305 10^3/uL (130-400); Red Blood Cell Count 4.49 10^6/uL (4.20-5.40); Red Cell Dist. Width 16.9 % (11.5-14.5); White Blood Cell Count 13.5 10^3/uL (4.8-10.8)
[2024-03-05 06:17] LABS: ALT (SGPT) 42 U/L (0-35); AST (SGOT) 35 U/L (14-36); Albumin 3.5 g/dl (3.5-5.0); Alkaline Phosphatase 85 U/L (38-126); Blood Urea Nitrogen 29 mg/dl (7-17); Carbon Dioxide 31 mmol/L (22-30); Chloride 112 mmol/L (98-107); Estimated Creatinine Clearance 101 ml/min; Glucose 201 mg/dl (70-99); Magnesium 2.1 mg/dl (1.6-2.3); Potassium 3.9 mmol/L (3.5-5.1); Sodium 151 mmol/L (135-145); Total Bilirubin 0.6 mg/dl (0.2-1.3); Total Protein 6.5 g/dl (6.3-8.2); eGFR > 60.00
[2024-03-05] MEDS: ALDACTONE 25 MG PO (07:46)
[2024-03-05] MEDS: MIRALAX 17 GRAMS PO (07:46)
[2024-03-05] MEDS: SENOKOT-S 1 TABLET PO (07:47)
[2024-03-05] MEDS: VIBRAMYCIN 100 MG PO ×2 (07:47→21:45)
[2024-03-05] MEDS: HEPARIN 5000 UNITS SC ×2 (07:47→21:40)
[2024-03-05] MEDS: LASIX 40 MG IV (07:47)
[2024-03-05] MEDS: COREG 6.25 MG PO ×2 (07:47→21:45)
[2024-03-05] MEDS: ZESTRIL 20 MG PO (07:47)
[2024-03-05] MEDS: NIZORAL 2% CREAM 1 APPLIC TOPICAL ×2 (07:48→22:16)
--- NOTE | 2024-03-05 08:53 | W.PN.CARDCBS ---
Today's Communication / Plan
-
We are attempting up titration of guideline directed medical therapy for heart failure and for better control of blood pressure.
Hold current medication and dosing today and reassess, will likely need further up titration over the next 24 to 48 hours.
Impression / Plan
-
PCP: Lorna Hale
Cardiology: Dr. Chen, last seen 2012
Patient came to ER from home after witnessed episodes of decreased levels of responsiveness and cardiology has been consulted for intermittent sinus bradycardia. Patient was previously followed by [facility] cardiology in 2013, but has not been seen by
our office since then. Patient has a cardiac history from back in the year 1999 and she was only 38 years old at that time, but had SOB and CURRAN and was admitted to [facility] and after serial Troponins that returned positive she went on to have a
cardiac catheterization at [facility]. In the year 1999 at [facility], she had an LAD PCI with 2 stents being placed and she took Plavix for 1 month prior to stopping it on her own due to dyspepsia. She
continued with aspirin. She continued with Cardiology care in at [facility] until 2005 when she had chest pain and completed an exercise nuclear stress test that was reportedly normal, but she was dissatisfied with her Cardiology care at that time and
stopped seeing that shoe cementer. Patient then came to ER in 2012 with chest pain and after serially undetectable troponin levels completed Persantine nuclear stress test that showed no evidence of ischemia and was discharged to home. Patient
followed up in the cardiology office and had ongoing HTN and was overall frustrated with her symptoms and never returned to our office. Around that same time patient had also been referred to Nephrology and was last seen by them in the office on
08/10/2012 and to quote a line directly from that consult, 'I simply do not know how it could be the case that she remains symptomatic due to hydralazine and I have no plausible logical explanation to explain her ongoing symptoms and have tried
every medication I can think of at this point and unfortunately patient has been intolerant of Norvasc, Avelox, clonidine, hydralazine of apparently Aldactone as well. Unfortunately I do not feel that I can help her at this point anymore as I have
no more options to explore and referred her to [place] for tertiary care.'It is unknown if patient ever followed up at a tertiary care center, but at some point she had multiple strokes and now has left-sided hemiparesis, aphasia and RUE contraction,
but despite this she continues to live at home with her who is her primary caregiver and is able to get the patient up OOB into a chair during the day and with the help of VNA and CHILD CENTER ASSISTANT he has been able to care for her within their home.
Wound care was asked to see the patient yesterday and she was noted to have an episode of decreased responsiveness and was brought to ER. Patient has had additional episodes and some have correlated to bradycardia, but other episodes are not
linked to bradycardia. Overnight telemetry and nursing notes reviewed and at one point patient was noted to be apneic and have bradycardia, but heart rate improved when nursing awakened the patient. There is no known diagnosis of REYNA.
Impression:
Admitted with decreased level of responsiveness 02/29/24
Sinus bradycardia
Possible REYNA
Possible UTI
Possible aspiration PNA
B/L LE edema
Hypoalbuminemia
HTN
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
CAD s/p LAD PCI at [facility] 1999
Hyperlipidemia
DM 2
Sacral wound
Acute HFrEF
Echo 05/24/2012: EF 55 to 60%, no WMA, moderate concentric LVH, normal RV size and function, mild MR
Echo 03/01/2024: EF 15 to 20%, global hypokinesis, stage III diastolic dysfunction, normal RV size and function, mild to moderate MR, aortic sclerosis without stenosis, moderate TR with PAP 69 mmHg, small pericardial effusion without evidence of
hemodynamic compromise
Plan:
HFrEF, newly diagnosed CM with EF 15-20% possibly related to chronically poor controlled hypertension
ProBNP elevated to 21k c/w decompensated HF
-Agree with IV lasix, will likely need daily maintenance dosing on discharge
-Follow daily weights, Cr/electrolytes
-Needs better blood pressure control
-Attempting guideline directed medical therapy for heart failure with reduced ejection fraction
Agree with Lisinopril (20 mg)/Coreg (6.25 mg BID) given reduced LVEF and up-titrate as tolerates
Added spironolactone, now up to 25 mg daily
Avoid SGLT2 d/t decubitus ulcers
Consider hydralazine as additional agent for afterload (although multiple drug intolerances have been noted in the medical record without true allergic reaction)
Hypertension
-Multiple drug intolerances without allergic reaction have been noted in the medical record
-We are attempting lisinopril, carvedilol, spironolactone for both blood pressure control and attempted initiation of guideline directed medical therapy and will need to follow for intolerances
-AntiHTN therapy uptitrated added chest this adm so we will reassess BP control prior to further up titration. There can also be consideration for minoxidil (was on previously)
Troponin is mildly elevated but flat and unable to assess for chest discomfort, ECG with nonspecific T wave changes
-Suspect nonischemic myocardial injury troponin elevation in the setting of CHF (flat troponin values 0.037, 0.0 4 7, 0.048, 0.046)
-No plan for ischemic evaluation at this time
Total time 51 minutes
HPI: Patient came to ER from home after witnessed episodes of decreased levels of responsiveness and cardiology has been consulted for intermittent sinus bradycardia. Patient was previously followed by [facility] cardiology in 2013, but has not been
seen by our office since then. Patient has a cardiac history from back in the year 1999 and she was only 38 years old at that time, but had SOB and CURRAN and was admitted to [facility] and after serial Troponins that returned positive she went on
to have a cardiac catheterization at [facility]. In the year 1999 at [facility], she had an LAD PCI with 2 stents being placed and she took Plavix for 1 month prior to stopping it on her own due to dyspepsia.
She continued with aspirin. She continued with Cardiology care in at [facility] until 2005 when she had chest pain and completed an exercise nuclear stress test that was reportedly normal, but she was dissatisfied with her Cardiology care at that time
and stopped seeing that shoe cementer. Patient then came to ER in 2012 with chest pain and after serially undetectable troponin levels completed Persantine nuclear stress test that showed no evidence of ischemia and was discharged to home.
Patient followed up in the cardiology office and had ongoing HTN and was overall frustrated with her symptoms and never returned to our office. Around that same time patient had also been referred to Nephrology and was last seen by them in the
office on 08/10/2012 and to quote a line directly from that consult, 'I simply do not know how it could be the case that she remains symptomatic due to hydralazine and I have no plausible logical explanation to explain her ongoing symptoms and have
tried every medication I can think of at this point and unfortunately patient has been intolerant of Norvasc, Avelox, clonidine, hydralazine of apparently Aldactone as well. Unfortunately I do not feel that I can help her at this point anymore as
I have no more options to explore and referred her to [place] for tertiary care.'It is unknown if patient ever followed up at a tertiary care center, but at some point she had multiple strokes and now has left-sided hemiparesis, aphasia and RUE
contraction, but despite this she continues to live at home with her who is her primary caregiver and is able to get the patient up OOB into a chair during the day and with the help of VNA and CHILD CENTER ASSISTANT he has been able to care for her within
their home. Wound care was asked to see the patient yesterday and she was noted to have an episode of decreased responsiveness and was brought to ER. Patient has had additional episodes and some have correlated to bradycardia, but other
episodes are not linked to bradycardia. Overnight telemetry and nursing notes reviewed and at one point patient was noted to be apneic and have bradycardia, but heart rate improved when nursing awakened the patient. There is no known diagnosis of
REYNA.
Progress Note - Process Helper
Subjective
Date of Service: March 05, 2024
Laying in bed nonverbal nonresponsive to instructions, appears comfortable
Objective
Labs:
03/05/24 05:40
03/05/24 05:40
Labs
Hgb 11.3 g/dL (12.0-16.0) L 03/05/24 05:40
Hct 38.0 % (37.0-47.0) 03/05/24 05:40
Plt Count 305 10^3/uL (130-400) 03/05/24 05:40
Sodium 151 mmol/L (135-145) H 03/05/24 05:40
Potassium 3.9 mmol/L (3.5-5.1) 03/05/24 05:40
BUN 29 mg/dl (7-17) H 03/05/24 05:40
Creatinine 0.5 mg/dL (0.6-1.0) L 03/05/24 05:40
Glucose 201 mg/dl (70-99) H 03/05/24 05:40
Vital Signs and I&O:
Vital Signs
Temp Pulse Resp BP Pulse Ox
99.2 F 82 12 158/88 95
03/05/24 07:05 03/05/24 07:47 03/05/24 06:00 03/05/24 07:47 03/05/24 06:00
Vital Signs
Temp Pulse Resp BP Pulse Ox
99.2 F 82 12 158/88 95
03/05/24 07:05 03/05/24 07:47 03/05/24 06:00 03/05/24 07:47 03/05/24 06:00
Intake & Output
03/03/24 03/04/24 03/05/24 03/06/24
06:59 06:59 06:59 06:59
Intake Total 260 / 260 260 / 260
Output Total 425 / 425 150 / 150 1200 / 1200
Balance -425 / -425 110 / 110 -940 / -940
Physical Exam
Physical Exam
GEN: No distress,
HEENT: supple, anicteric, mmm
LUNGS: CTA, no wheezes/rales
CV: Reg, S1/S2, 1/6 syst LSB, no gallop
ABD: soft, BS+, NT/ND
EXT: There is +2 pitting edema bilateral lower extremities
NEURO: Difficult to assess as patient does not respond to instructions
--- NOTE | 2024-03-05 11:03 | W.PN.HOSP.TC ---
Today's Communication/Plan
-
with evolving hyponatremia; decrease Lasix to 20mg
monitor BP
poor prognosis
Assessment / Plan
Assessment / Plan
Assessment/plan
#Toxic metabolic encephalopathy secondary to infectious etiology versus cardiac
-MRI brain 03/02-no evidence of acute to subacute infarction, no evidence of acute intracranial hemorrhage. Multiple regions of old infarction atrophy and significant leukomalacia.
-Urine toxicology negative
-Blood cultures negative to date
# Urinary tract infection
-Urine culture Proteus mirabilis
-Continue Rocephin, doxycycline, day 06/22
#Acute HFrEF
-Echocardiogram 03/01- Severely reduced left ventricular systolic function. Global hypokinesis. Normal left ventricular wall thickness. Left ventricular ejection fraction is 15-20%
-continue 20 mg of IV Lasix - noted hypernatremia evolving
-GDMT therapy, although avoid SGLT2i given history of UTIs, decubitus ulcer
-Continue Coreg, lisinopril, spironolactone
-Daily weights, I's and O's
-Avoid minoxidil
# Transaminitis
-Trend LFTs
#CVA with residual aphasia, left hemiparesis
-Bedbound at baseline, uses lift to sit in chair at home for few hours a day
-Continue Plavix
-Hospice appropriate - primary resident team can decide on consult and GOC discussion with family on Thursday.
-Per speech evaluation -high risk for aspiration, keep n.p.o.
# Essential hypertension
-Continue Coreg, lisinopril, spironolactone
#Hyperlipidemia
-Continue atorvastatin
#T2DM
-Hold NovoLog 70/30
-Monitor glucose levels, coverage with SSI
#Stage 4 coccyx pressure injury POA
-continue wound care
#Normocytic Anemia
-Follow CBC
DVT prophylaxis; heparin subcu
CODE STATUS ; DNR
Poor prognosis
Anticipated Discharge: > 48 hours
Subjective/Interval History
-
Date of Service: March 05, 2024
appears comfortable, nonverbal
Objective Data
-
Labs:
Laboratory Results
03/05/24
05:40
WBC 13.5 H
Hgb 11.3 L
Hct 38.0
Plt Count 305
Sodium 151 H
Potassium 3.9
Chloride 112 H
Carbon Dioxide 31 H
BUN 29 H
Creatinine 0.5 L
Glucose 201 H
Calcium 9.0
Total Bilirubin 0.6
AST 35
ALT 42 H
Alkaline Phosphatase 85
Vital Signs:
Vital Signs
Temp Pulse Resp BP Pulse Ox
99.2 F 69 29 124/76 99
03/05/24 07:05 03/05/24 10:00 03/05/24 10:00 03/05/24 10:00 03/05/24 10:00
I&O
03/04/24 03/05/24 03/06/24
06:59 06:59 06:59
Intake Total 260 / 260 260 / 260
Output Total 150 / 150 1200 / 1200 450 / 450
Balance 110 / 110 -940 / -940 -450 / -450
Physical Exam
-
General: No Apparent Distress and Appears Chronically Ill
HEENT: Normocephalic and Atraumatic
Cardiac: Regular Rhythm and S1/S2
Musculoskeletal: Edema, Left Upper Extrem and Edema, Right Lower Extrem
Psych: Calm and Apparent Dementia
Data Reviewed
-
Total Time Spent with Patient (in minutes): 51
Labs: Labs Reviewed by me
[2024-03-05 12:31] LABS: Glucose - Point of Care 201 mg/dl (70-99)
[2024-03-05] MEDS: NOVOLOG FLEXPEN-MODERATE RESISTANCE 3 UNITS SC (12:43)
--- NOTE | 2024-03-05 16:36 | PTCARENOTE ---
Patient is nonverbal at baseline. Patient occasionally says 'no'. L side paralysis and R hand contraction d/t hx of stroke. Patient on 2L NC. VSS. Purewick in place d/t patient incontinent and wounds on sacrum. Wound care completed per order. Small
incontinent BM. See MAR for bowel regimen. Patient NPO. Patients updated on phone. Call johnson within reach, bed in lowest position, and bed of wheels locked.
[2024-03-05 17:32] LABS: Glucose - Point of Care 179 mg/dl (70-99)
--- NOTE | 2024-03-05 19:44 | PTCARENOTE ---
Verbal report given to 4E RN. Patient transferred to 4E with patient belongings.
[2024-03-05] MEDS: ROCEPHIN 2000 MG IV (21:30)
[2024-03-05] MEDS: STERILE WATER FOR INJECTION 20 ML IV (21:30)
[2024-03-06 00:29] LABS: Glucose - Point of Care 202 mg/dl (70-99)
[2024-03-06] MEDS: NOVOLOG FLEXPEN-MODERATE RESISTANCE 3 UNITS SC (01:04)
[2024-03-06 03:11] VITALS: BP 148/96
[2024-03-06 05:27] LABS: Glucose - Point of Care 163 mg/dl (70-99)
[2024-03-06 06:00] VITALS: BMI 24.0
[2024-03-06] MEDS: NOVOLOG FLEXPEN-MODERATE RESISTANCE 1 UNITS SC ×4 (06:28→23:42)
[2024-03-06 07:55] VITALS: BP 154/101
[2024-03-06 08:12] LABS: Glucose - Point of Care 166 mg/dl (70-99)
[2024-03-06 08:43] LABS: White Blood Cell Count 12.1 10^3/uL (4.8-10.8)
[2024-03-06 08:44] LABS: Hematocrit 38.3 % (37.0-47.0); Hemoglobin 10.9 g/dL (12.0-16.0); Mean Corp Hgb Conc. 28.5 g/dL (33.0-37.0); Mean Corpuscular Hgb 24.4 pg (27.0-31.0); Mean Corpuscular Volume 85.9 fL (81.0-99.0); Mean Platelet Volume 11.1 fL (7.4-10.4); Platelet Count 290 10^3/uL (130-400); Red Blood Cell Count 4.46 10^6/uL (4.20-5.40)
[2024-03-06 08:54] LABS: Blood Urea Nitrogen 34 mg/dl (7-17); Calcium 8.9 mg/dl (8.4-10.2); Carbon Dioxide 32 mmol/L (22-30); Chloride 110 mmol/L (98-107); Estimated Creatinine Clearance 101 ml/min; Glucose 173 mg/dl (70-99); Potassium 3.8 mmol/L (3.5-5.1); Sodium 152 mmol/L (135-145); eGFR > 60.00
--- NOTE | 2024-03-06 11:20 | W.PN.UPDATE ---
Update Note
Progress Note Update
Agree with reducing Lasix as noted by primary service yesterday
Blood pressure still elevated
Increase carvedilol to 12.5 mg twice daily while maintaining current dose of BETITO inhibitor and reassess blood pressure tomorrow
[2024-03-06 11:30] VITALS: BP 163/103
[2024-03-06] MEDS: ALDACTONE PO (11:37)
[2024-03-06] MEDS: NIZORAL 2% CREAM 1 APPLIC TOPICAL ×2 (11:37→20:20)
[2024-03-06] MEDS: VIBRAMYCIN PO (11:37)
[2024-03-06] MEDS: ZESTRIL PO (11:37)
[2024-03-06] MEDS: LASIX 20 MG IV (11:41)
[2024-03-06] MEDS: HEPARIN 5000 UNITS SC ×2 (11:42→20:17)
--- NOTE | 2024-03-06 11:56 | W.PN.HOSP.TC ---
Today's Communication/Plan
-
IV Lasix
Hypernatremia is poor prognostic sign in setting of IV Lasix and lack of oral hydration from baseline status. Hospice is appropriate, ongoing GOC discussions
IV BB as not able to take meds due to somnolent status
Assessment / Plan
Assessment / Plan
Assessment/plan
#Toxic metabolic encephalopathy secondary to infectious etiology versus cardiac
-MRI brain 03/02-no evidence of acute to subacute infarction, no evidence of acute intracranial hemorrhage. Multiple regions of old infarction atrophy and significant leukomalacia.
-Urine toxicology negative
-Blood cultures negative to date
# Urinary tract infection
-Urine culture Proteus mirabilis
-Continue Rocephin, doxycycline, day 07/23
#Acute HFrEF
-Echocardiogram 03/01- Severely reduced left ventricular systolic function. Global hypokinesis. Normal left ventricular wall thickness. Left ventricular ejection fraction is 15-20%
-continue 20 mg of IV Lasix - noted hypernatremia evolving as underlying lack of free water intake is tipping balance towards hypernatremia. This is a poor prognostic sign.
-GDMT therapy, although avoid SGLT2i given history of UTIs, decubitus ulcer
-Continue Coreg, lisinopril, spironolactone if able to take pills. IV BB if not.
-Daily weights, I's and O's
-Avoid minoxidil
# Transaminitis
-Trend LFTs
#CVA with residual aphasia, left hemiparesis
-Bedbound at baseline, uses lift to sit in chair at home for few hours a day
-Continue Plavix
-Hospice appropriate - primary resident team can decide on consult and GOC discussion with family on Thursday.
-Per speech evaluation -high risk for aspiration, keep n.p.o.
# Essential hypertension
-Continue Coreg, lisinopril, spironolactone
#Hyperlipidemia
-Continue atorvastatin
#T2DM
-Hold NovoLog 70/30
-Monitor glucose levels, coverage with SSI
#Stage 4 coccyx pressure injury POA
-continue wound care
#Normocytic Anemia
-Follow CBC
DVT prophylaxis; heparin subcu
CODE STATUS ; DNR
Poor prognosis
Anticipated Discharge: > 48 hours
Subjective/Interval History
-
Date of Service: March 06, 2024
remains minimally responsive, nonverbal
Objective Data
-
Labs:
Laboratory Results
03/06/24
06:35
WBC 12.1 H
Hgb 10.9 L
Hct 38.3
Plt Count 290
Sodium 152 H
Potassium 3.8
Chloride 110 H
Carbon Dioxide 32 H
BUN 34 H
Creatinine 0.6
Glucose 173 H
Calcium 8.9
Vital Signs:
Vital Signs
Temp Pulse Resp BP Pulse Ox
97.3 F 83 16 154/101 2
03/06/24 07:55 03/06/24 11:41 03/06/24 07:55 03/06/24 11:41 03/06/24 07:55
I&O
03/05/24 03/06/24 03/07/24
06:59 06:59 06:59
Intake Total 260 / 260
Output Total 1200 / 1200 1150 / 1150
Balance -940 / -940 -1150 / -1150
Physical Exam
-
General: No Apparent Distress and Appears Chronically Ill
HEENT: Normocephalic and Atraumatic
Cardiac: Regular Rhythm and S1/S2
Musculoskeletal: Edema, Right Lower Extrem and Edema, Left Lower Extrem
Psych: Apparent Dementia
Data Reviewed
-
Total Time Spent with Patient (in minutes): 42
Labs: Labs Reviewed by me
[2024-03-06] MEDS: COREG PO (12:03)
[2024-03-06 14:14] LABS: Glucose - Point of Care 160 mg/dl (70-99)
[2024-03-06] MEDS: LOPRESSOR 5 MG IV ×3 (14:16→23:26)
[2024-03-06 15:55] VITALS: BP 167/91
[2024-03-06 18:00] LABS: Glucose - Point of Care 183 mg/dl (70-99)
[2024-03-06 20:15] VITALS: BP 166/93
[2024-03-06] MEDS: VIBRAMYCIN 100 MG PO (20:23)
[2024-03-06] MEDS: STERILE WATER FOR INJECTION 20 ML IV (21:14)
[2024-03-06] MEDS: ROCEPHIN 2000 MG IV (21:14)
[2024-03-06 23:21] VITALS: BP 160/93
[2024-03-06 23:41] LABS: Glucose - Point of Care 167 mg/dl (70-99)
[2024-03-07 04:43] VITALS: BP 165/94
[2024-03-07 05:18] VITALS: BMI 23.1
[2024-03-07 06:02] LABS: Glucose - Point of Care 167 mg/dl (70-99)
[2024-03-07] MEDS: LOPRESSOR 5 MG IV ×4 (06:07→23:42)
[2024-03-07] MEDS: NOVOLOG FLEXPEN-MODERATE RESISTANCE 1 UNITS SC ×3 (06:08→17:53)
[2024-03-07 07:30] VITALS: BP 159/98
[2024-03-07 07:35] LABS: Glucose - Point of Care 175 mg/dl (70-99)
[2024-03-07 07:37] LABS: Hematocrit 39.1 % (37.0-47.0); Hemoglobin 11.7 g/dL (12.0-16.0); Mean Corp Hgb Conc. 29.9 g/dL (33.0-37.0); Mean Corpuscular Hgb 25.2 pg (27.0-31.0); Mean Corpuscular Volume 84.3 fL (81.0-99.0); Mean Platelet Volume 11.5 fL (7.4-10.4); Platelet Count 277 10^3/uL (130-400); Red Blood Cell Count 4.64 10^6/uL (4.20-5.40); Red Cell Dist. Width 17.2 % (11.5-14.5); White Blood Cell Count 11.3 10^3/uL (4.8-10.8)
--- NOTE | 2024-03-07 08:09 | W.PN.HOSP.TC ---
Addendum entered and electronically signed by Charanjit Henao MD 03/07/24 22:59:
Attending Addendum-
I saw and evaluated the patient. I reviewed the resident�s note and agree with findings and plan as documented in the resident�s note. Sub: patient not following commands at all. just moaning. No discernable speech. NAEON. Full 12 point ROS reviewed
and negative except as documented Exam: Vitals reviewed in chart GEN-NAD heart RRR 3/6 SM @ apex and RUSB lungs rales at bases b/l abd soft NT ND pos BS LE- +1 b/l LE edema Neuro not following commands PERRLA b/l RUE hands contracted
# TME
- secondary to infection vs cardiac etiology
- monitor closely in IMU
- MRI brain- 03/02- Multiple regions of old infarction Atrophy and significant leukomalacia.
No evidence for acute to subacute infarction. No evidence for acute intracranial hemorrhage
- urine tox - neg
- blood cx - NGTD
- nearing baseline- overall poor QOL
#PNA
- cont Rocephin and doxy day 08/22- last day abx
- cont to monitor
# UTI
- blood cx-NGTD
- urine cx proteus- abx day 08/22
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
- PT OT as able
- poor QOL
- pall care c/s- unrealistic
# Acute HFrEF exacerbation-New
- episodes of bradycardia and NIMI
- ECHO 03/01-Severely reduced left ventricular systolic function. Global hypokinesis. Normal left ventricular wall thickness.
Left ventricular ejection fraction is 15-20%
- DC lasix due to hyper na
- cards input appreciated
- hold coreg-NPO switch to lopressor
- Hold lisinopril - NPO
- hold spirinolactone - NPO
- DC minoxidil
- monitor daily weights 80kg->73kg
- cont strict I and O
# Hypernatremia
- worsening
- DC lasix
- start D5W
- repeat BMP q 12
# Leukocytosis
- trending down
-repeat CBC in am
# CVA with residual aphasia, left hemiparesis
-functionally quad
-Continue Plavix
-poor QOL
-hospice appropriate
# Coronary Artery Disease s/p h/o Stent
- cont Plavix q 72
# Dysphagia
- changed to NPO 03/04 after reeval
- cont NPO
- apparently eating regular food at home?
- aspiration precautions
- d/w re feeding options- he would like to attempt straw feeds as he does at home, accepts risks of aspiration and
- Poor prognosis- hospice appropriate pall care c/s
# Essential Hypertension
- better controlled
- cont IV BB
- DC minoxidil indefinitely
- cont lisinopril when taking PO
- cont spironolactone when taking PO
# Hyperlipidemia
-Continue atorvastatin when taking PO
Diabetes Mellitus, Type II
-hold NovoLog 70/30 due to being NPO, home dose 20am/25pm
-Monitor sugars and continue coverage insulin
# Stage 4 coccyx pressure injury
- POA
- continue wound care, not well taken care of at home
# Normocytic Anemia
-follow CBC daily
DVT proph: SC Heparin
Code Status: DNR confirmed
Time spent coordinating care, review of plan of care with resident, personally reviewed records in EMR, med rec, consults, notes, labs, radiology, d/w nursing/POA � 53 mins
Original Note:
Today's Communication/Plan
-
aspiration precautions
Assessment / Plan
Assessment / Plan
Patient is 63-year-old female with past medical history of multiple strokes, CAD, hypertension, diabetes mellitus who presents to [facility] after an unresponsive episode. While being evaluated by her wound care nurse at home, patient was
noted to be unresponsive.
Assessment/plan
#Toxic metabolic encephalopathy
Brain MRI negative
Urine toxicology negative
Blood cultures negative
#UTI
Urinary culture positive for Proteus
Continue doxycycline and Rocephin, day 7 of 7
Brain MRI negative for new
#Acute HFrEF
Echocardiogram showed severely reduced left ventricular systolic function and global hypokinesis. Left ventricular ejection fraction is 15 to 20%
Hold IV Lasix
Continue Coreg 12.5 twice daily, lisinopril and spironolactone
Continue daily weights and ins and outs
Avoid minoxidil
# Transaminitis
Continue to monitor LFTs
#CVA with residual aphasia, left hemiparesis
Bedbound at baseline, uses lift to sit in chair at home for few hours a day
Continue Plavix
Per speech, high risk for aspiration, currently n.p.o. is resistant to this and will continues to give patient fluids�she is seen coughing after
# Essential hypertension
Continue Coreg, lisinopril, spironolactone
#Hyperlipidemia
Continue atorvastatin
#T2DM
Hold NovoLog 70/30
Monitor glucose levels, coverage with SSI
#Stage 4 coccyx pressure injury POA
continue wound care
#Normocytic Anemia
Follow CBC
DVT prophylaxis; heparin subcu
CODE STATUS ; DNR
Poor prognosis
Anticipated Discharge: > 48 hours
Subjective/Interval History
-
Date of Service: March 07, 2024
Patient is 63-year-old female with past medical history of multiple strokes, CAD, hypertension, diabetes mellitus who presents to [facility] after an unresponsive episode. While being evaluated by her wound care nurse at home, patient was
noted to be unresponsive. This morning patient continues to remain unresponsive to name, groaning in her sleep.
Objective Data
-
Labs:
Laboratory Results
03/07/24
06:39
WBC 11.3 H
Hgb 11.7 L
Hct 39.1
Plt Count 277
Sodium Pending
Potassium Pending
Chloride Pending
Carbon Dioxide Pending
BUN Pending
Creatinine Pending
Glucose Pending
Calcium Pending
Vital Signs:
Vital Signs
Temp Pulse Resp BP Pulse Ox
98.0 F 86 20 162/101 97
03/07/24 04:43 03/07/24 06:07 03/07/24 04:43 03/07/24 06:07 03/07/24 04:43
I&O
03/06/24 03/07/24 03/08/24
06:59 06:59 06:59
Intake Total 0 / 0
Output Total 1150 / 1150 400 / 400
Balance -1150 / -1150 -400 / -400
Review of Systems
-
Unable to obtain full review of systems at this time due to: Patient Non-verbal
History Source: Patient
Physical Exam
-
General: Appears Chronically Ill
Respiratory: Clear to Auscultation
Cardiac: Regular Rhythm and S1/S2
GI: Soft, Nontender, Nondistended and Normal Bowel Sounds
Musculoskeletal: No Clubbing, No Cyanosis and No Edema
Skin: Warm and Dry
Neuro: Sedated
Psych: Calm
Data Reviewed
-
Labs: Labs Reviewed by me and Discussed with Physician
Old Records: Reviewed
[2024-03-07 08:10] LABS: Blood Urea Nitrogen 36 mg/dl (7-17); Calcium 9.2 mg/dl (8.4-10.2); Carbon Dioxide 35 mmol/L (22-30); Chloride 111 mmol/L (98-107); Estimated Creatinine Clearance 101 ml/min; Glucose 176 mg/dl (70-99); Potassium 3.5 mmol/L (3.5-5.1); Sodium 154 mmol/L (135-145); eGFR > 60.00
[2024-03-07] MEDS: ALDACTONE PO (08:53)
[2024-03-07] MEDS: HEPARIN 5000 UNITS SC ×2 (08:54→19:24)
[2024-03-07] MEDS: LASIX 20 MG IV (08:55)
[2024-03-07] MEDS: ZESTRIL PO (08:56)
[2024-03-07] MEDS: NIZORAL 2% CREAM 1 APPLIC TOPICAL ×2 (08:56→19:24)
[2024-03-07] MEDS: VIBRAMYCIN PO ×2 (08:56→19:25)
[2024-03-07] MEDS: PLAVIX PO (08:56)
[2024-03-07 11:06] VITALS: BMI 23.1
[2024-03-07 11:24] VITALS: BP 168/62
[2024-03-07 11:48] LABS: Glucose - Point of Care 168 mg/dl (70-99)
--- NOTE | 2024-03-07 12:13 | W.PN.CARDCBS ---
Addendum entered and electronically signed by Omari Baptiste MD 03/07/24 13:10:
I saw and examined the patient.
The NBA PLAYER or PA's note was reviewed and I agree with the note.
Comment: General: Awake but no response to commands
Neck: Supple, no JVD, HJR, carotids +2 B/L, no bruits bilaterally.
Heart: Non displaced PMI, RRR, no murmurs, No S3, S4, no rubs.
Lungs: poor effort
Abdomen: Normal bowel sounds, soft, non-tender, non-distended.
Extremities: No clubbing, cyanosis or edema bilaterally.
Neuro: Awake but no response to commands
Overall prognosis poor. diuretics on hold with stable volume status
Original Note:
Today's Communication / Plan
-
Diuresis now on hold
Ongoing GOC discussions
Impression / Plan
-
PCP: Lorna Hale
Cardiology: Dr. Chen, last seen 2012
Impression:
Admitted with decreased level of responsiveness 02/29/24
Sinus bradycardia
Possible REYNA
Possible UTI
Possible aspiration PNA
B/L LE edema
Hypoalbuminemia
HTN
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
CAD s/p LAD PCI at [facility] 1999
Hyperlipidemia
DM 2
Sacral wound
Acute HFrEF
Echo 05/24/2012: EF 55 to 60%, no WMA, moderate concentric LVH, normal RV size and function, mild MR
Echo 03/01/2024: EF 15 to 20%, global hypokinesis, stage III diastolic dysfunction, normal RV size and function, mild to moderate MR, aortic sclerosis without stenosis, moderate TR with PAP 69 mmHg, small pericardial effusion without evidence of
hemodynamic compromise
Plan:
HFrEF, newly diagnosed CM with EF 15-20% possibly related to chronically poor controlled hypertension
ProBNP elevated to 21k c/w decompensated HF
-Initially underwent diuresis. Weight down 16 pounds since admission. Lasix has been placed on hold as of 03/06/2024 due to worsening hypernatremia and patient appears to be euvolemic
-Follow daily weights, Cr/electrolytes
-Attempting guideline directed medical therapy for heart failure with reduced ejection fraction
Agree with Lisinopril (20 mg)/Coreg (12.5 mg BID - increased dose) given reduced LVEF and up-titrate as tolerates
Added spironolactone, now up to 25 mg daily
Avoid SGLT2 d/t decubitus ulcers and recurrent UTIs
Consider hydralazine as additional agent for afterload (although multiple drug intolerances have been noted in the medical record without true allergic reaction)
Hypertension
-Multiple drug intolerances without allergic reaction have been noted in the medical record
-We are attempting lisinopril, carvedilol, spironolactone for both blood pressure control and attempted initiation of guideline directed medical therapy and will need to follow for intolerances
-Needs better blood pressure control, could consider hydralazine as additional afterload agent or minoxidil (was on previously)
Troponin is mildly elevated but flat and unable to assess for chest discomfort, ECG with nonspecific T wave changes
-Suspect nonischemic myocardial injury troponin elevation in the setting of CHF (flat troponin values 0.037, 0.0 4 7, 0.048, 0.046)
-No plan for ischemic evaluation at this time
Discussion of ongoing goals of care with family. Patient is bedbound, aphasic and unable to communicate due to old stroke, deemed high risk for aspiration due to prior stroke.
HPI: Patient came to ER from home after witnessed episodes of decreased levels of responsiveness and cardiology has been consulted for intermittent sinus bradycardia. Patient was previously followed by [facility] cardiology in 2013, but has not been
seen by our office since then. Patient has a cardiac history from back in the year 1999 and she was only 38 years old at that time, but had SOB and CURRAN and was admitted to [facility] and after serial Troponins that returned positive she went on
to have a cardiac catheterization at [facility]. In the year 1999 at [facility], she had an LAD PCI with 2 stents being placed and she took Plavix for 1 month prior to stopping it on her own due to dyspepsia.
She continued with aspirin. She continued with Cardiology care in at [facility] until 2005 when she had chest pain and completed an exercise nuclear stress test that was reportedly normal, but she was dissatisfied with her Cardiology care at that time
and stopped seeing that press department manager. Patient then came to ER in 2012 with chest pain and after serially undetectable troponin levels completed Persantine nuclear stress test that showed no evidence of ischemia and was discharged to home.
Patient followed up in the cardiology office and had ongoing HTN and was overall frustrated with her symptoms and never returned to our office. Around that same time patient had also been referred to Nephrology and was last seen by them in the
office on 08/10/2012 and to quote a line directly from that consult, 'I simply do not know how it could be the case that she remains symptomatic due to hydralazine and I have no plausible logical explanation to explain her ongoing symptoms and have
tried every medication I can think of at this point and unfortunately patient has been intolerant of Norvasc, Avelox, clonidine, hydralazine of apparently Aldactone as well. Unfortunately I do not feel that I can help her at this point anymore as
I have no more options to explore and referred her to [place] for tertiary care.'It is unknown if patient ever followed up at a tertiary care center, but at some point she had multiple strokes and now has left-sided hemiparesis, aphasia and RUE
contraction, but despite this she continues to live at home with her who is her primary caregiver and is able to get the patient up OOB into a chair during the day and with the help of [facility] and [employer] he has been able to care for her within
their home. Wound care was asked to see the patient yesterday and she was noted to have an episode of decreased responsiveness and was brought to ER. Patient has had additional episodes and some have correlated to bradycardia, but other
episodes are not linked to bradycardia. Overnight telemetry and nursing notes reviewed and at one point patient was noted to be apneic and have bradycardia, but heart rate improved when nursing awakened the patient. There is no known diagnosis of
REYNA.
Progress Note - Grey Goods Tester
Subjective
Date of Service: March 07, 2024
Patient seen and examined. Patient lying in bed moaning. Unable to provide history.
Objective
Labs:
03/07/24 06:39
03/07/24 06:39
Labs
Hgb 11.7 g/dL (12.0-16.0) L 03/07/24 06:39
Hct 39.1 % (37.0-47.0) 03/07/24 06:39
Plt Count 277 10^3/uL (130-400) 03/07/24 06:39
Sodium 154 mmol/L (135-145) H 03/07/24 06:39
Potassium 3.5 mmol/L (3.5-5.1) 03/07/24 06:39
BUN 36 mg/dl (7-17) H 03/07/24 06:39
Creatinine 0.5 mg/dL (0.6-1.0) L 03/07/24 06:39
Glucose 176 mg/dl (70-99) H 03/07/24 06:39
Vital Signs and I&O:
Vital Signs
Temp Pulse Resp BP Pulse Ox
98.7 F 71 18 168/62 99
03/07/24 11:24 03/07/24 11:24 03/07/24 11:24 03/07/24 11:24 03/07/24 11:24
Vital Signs
Temp Pulse Resp BP Pulse Ox
98.7 F 71 18 168/62 99
03/07/24 11:24 03/07/24 11:24 03/07/24 11:24 03/07/24 11:24 03/07/24 11:24
Intake & Output
03/05/24 03/06/24 03/07/24 03/08/24
06:59 06:59 06:59 06:59
Intake Total 260 / 260 0 / 0
Output Total 1200 / 1200 1150 / 1150 400 / 400
Balance -940 / -940 -1150 / -1150 -400 / -400
Physical Exam
Physical Exam
GEN: Lying in bed, no acute distress
HEENT: supple, anicteric, mmm
LUNGS: CTA anteriorly, no wheezes/rales
CV: Reg, S1/S2, 1/6 syst LSB, no gallop
ABD: soft, BS+, NT/ND
EXT: Trace bilateral lower extremity edema
NEURO: Difficult to assess as patient does not respond to instructions, aphasic
--- NOTE | 2024-03-07 12:16 | CM ---
CM following re: discharge planning. [facility]; no steps.
Pt is bedbound at baseline and has caregiver services 7 days/week, 5-7 hours/day. Pt's will bring the pt home at discharge [place] [facility] [place], resumption of caregiver services and family support.
D/C plan: home with VN services, resumptions of caregiver services and support.
PCP: Lorna Hale
Pharmacy: [facility]
[2024-03-07 15:20] VITALS: BP 163/78
[2024-03-07] MEDS: D5W 1000 IV (17:38)
[2024-03-07 17:50] LABS: Glucose - Point of Care 181 mg/dl (70-99)
[2024-03-07 19:36] VITALS: BP 154/91
[2024-03-07] MEDS: ROCEPHIN 2000 MG IV (21:05)
[2024-03-07] MEDS: STERILE WATER FOR INJECTION 20 ML IV (21:05)
[2024-03-07 23:16] VITALS: BP 159/89
[2024-03-08 00:13] LABS: Glucose - Point of Care 185 mg/dl (70-99)
[2024-03-08] MEDS: NOVOLOG FLEXPEN-MODERATE RESISTANCE 1 UNITS SC ×2 (00:28→12:12)
[2024-03-08 00:38] LABS: Blood Urea Nitrogen 31 mg/dl (7-17); Carbon Dioxide 38 mmol/L (22-30); Chloride 108 mmol/L (98-107); Estimated Creatinine Clearance 101 ml/min; Glucose 313 mg/dl (70-99); Potassium 3.1 mmol/L (3.5-5.1); Sodium 152 mmol/L (135-145); eGFR > 60.00
[2024-03-08 03:29] VITALS: BP 157/90
[2024-03-08 06:00] VITALS: BMI 22.4
[2024-03-08 06:07] LABS: Glucose - Point of Care 230 mg/dl (70-99)
[2024-03-08] MEDS: NOVOLOG FLEXPEN-MODERATE RESISTANCE 3 UNITS SC (06:10)
[2024-03-08] MEDS: LOPRESSOR 5 MG IV ×2 (06:10→12:11)
[2024-03-08 07:30] VITALS: BP 168/94
[2024-03-08 09:13] LABS: % Basophils 0.1 % (0-2); % Immature Granulocytes 0.4 % (0-0.5); % Lymphocytes 10.3 % (20.5-51.1); % Monocytes 6.7 % (1.7-9.3); % Neutrophils 82.5 % (42.2-75.2); Absolute Lymphocytes 0.9 10^3/uL (1.2-3.4); Absolute Monocytes 0.6 10^3/uL (0.1-0.6); Absolute Neutrophils 7.1 10^3/uL (1.4-6.5); Hematocrit 36.1 % (37.0-47.0); Hemoglobin 10.3 g/dL (12.0-16.0); Mean Corp Hgb Conc. 28.5 g/dL (33.0-37.0); Mean Corpuscular Hgb 24.9 pg (27.0-31.0); Mean Corpuscular Volume 87.2 fL (81.0-99.0); Mean Platelet Volume 11.8 fL (7.4-10.4); Nucleated Red Blood Cells % 0 %; Platelet Count 228 10^3/uL (130-400); Red Blood Cell Count 4.14 10^6/uL (4.20-5.40); White Blood Cell Count 8.6 10^3/uL (4.8-10.8)
[2024-03-08 09:14] LABS: Anisocytosis 1+; Hypochromasia 1+; Normal RBC Morphology No; Ovalocytes 2+; Polychromasia 1+
[2024-03-08 09:30] LABS: ALT (SGPT) 24 U/L (0-35); AST (SGOT) 17 U/L (14-36); Albumin 2.4 g/dl (3.5-5.0); Alkaline Phosphatase 70 U/L (38-126); Blood Urea Nitrogen 22 mg/dl (7-17); Carbon Dioxide 31 mmol/L (22-30); Chloride 89 mmol/L (98-107); Estimated Creatinine Clearance 101 ml/min; Potassium 2.6 mmol/L (3.5-5.1); Sodium 128 mmol/L (135-145); Total Bilirubin 0.3 mg/dl (0.2-1.3); Total Protein 4.7 g/dl (6.3-8.2); eGFR > 60.00
[2024-03-08 09:32] LABS: Glucose 594 mg/dl (70-99)
[2024-03-08] MEDS: ZESTRIL PO (09:44)
[2024-03-08] MEDS: NIZORAL 2% CREAM 1 APPLIC TOPICAL (09:44)
[2024-03-08] MEDS: VIBRAMYCIN 100 MG PO (09:44)
[2024-03-08] MEDS: NOVOLOG FLEXPEN 10 UNITS SC (09:45)
[2024-03-08] MEDS: HEPARIN 5000 UNITS SC (09:50)
--- NOTE | 2024-03-08 09:50 | PTOTSP ---
Speech Language Pathology
Pt seen for dysphagia tx. Pt unable to effectively sip from straw during duration of session. Provided liquids via syringe, approximately 2ccs at a time, as does at home. Minimal lip closure around syringe. In 30ccs of water, cough x6.
Suspect aspiration. Also provided puree with prolonged oral phase and lingual pumping, taking up to 20 seconds to initiate swallow. Mild diffuse oral residue noted post puree, which was suctioned by UTILITY OPERATOR. stated yesterday to UTILITY OPERATOR that he
was willing to accept aspiration risk. After session, resident notified UTILITY OPERATOR of plan now for home with hospice.
Recommend:
(1) IDDSI Level 4 (Puree) and Thin liquids with aspiration suspected at times ( accepts risks)
(2) Aspiration precautions: sit upright, slow rate, provide liquids when pt actively accepting, liquids via straw or syringe (approximately 2ccs at a time), oral care with suctioning post meals
(3) Stop meal if consistent coughing noted
(4) Meds crushed in puree
(5) UTILITY OPERATOR to continue to follow
[2024-03-08] MEDS: ALDACTONE PO (09:51)
[2024-03-08] MEDS: KCL 270 MEQ IV (09:51)
--- NOTE | 2024-03-08 09:54 | W.CON.PAL ---
Consultation
-
Date/Time Consultation Requested: 03/08/24
Date/Time Consultation Performed: 03/08/24
Performing Provider: Mckenna REN
Reason for Consult: Goals of Care Discussion
Primary Diagnosis: multiple strokes, advanced heart failure
Consult Requested By: Patient's Family and Patient's Physician
Reason for Admission
Illness Course/HPI
63 year old F with history of multiple strokes c/b chronic sacral wound and dysphagia, HTN, heart failure 15-20% EF, CAD, DM admitted from home after an episode of unresponsiveness.
Upon admission was obtunded, treated for a UTI and possible aspiration PNA. Seen by speech who recommended NPO, opting for continued comfort feeds. Remains altered, aphasic. BPs have been volatile. Team spoke with about hospice vs
palliative care and interested in his options.
Spoke with patients Tariq. States his goal is to get her home as he doesnt want her wound to get worse and she requires alot of time and care during feeding which cannot be done in the hospital. We discussed options for home - he currently
has [facility] home care and wound care as well as an aide through Medicaid. Discussed differences between hospice and palliative care. Recommended hospice given her significant medical comorbidities and likely approaching end of life. After discussion,
he is agreeable to hospice referral and wants her home karthik.
Discussed with team and liaison inspection laboratory assistant.
Objective Data
-
Objective Data:
Vital Signs
Temp Pulse Resp BP Pulse Ox
97.9 F 74 20 168/94 98
03/08/24 07:30 03/08/24 07:30 03/08/24 07:30 03/08/24 07:30 03/08/24 07:30
Laboratory Results
03/08/24 07:59
03/08/24 07:59
Hemoglobin A1c 6.4 % (4.0-5.6) H 03/01/24 05:59
Total Protein 4.7 g/dl (6.3-8.2) L 03/08/24 07:59
Albumin 2.4 g/dl (3.5-5.0) L 03/08/24 07:59
Urine Color Yellow 02/29/24 19:20
Urine Clarity Clear (Clear) 02/29/24 19:20
Urine pH 6.0 (5.0-9.0) 02/29/24 19:20
Ur Specific Grant 1.020 (<1.030) 02/29/24 19:20
Urine Ketones Negative (Negative) 02/29/24 19:20
Urine Bilirubin Negative (Negative) 02/29/24 19:20
Palliative Performance Scale
Palliative Performance Scale:
PPS Level Ambulation Activity & Evidence of Disease Self Care Intake Conscious Level
100% Full Normal Activity & Work; Full Intake Full
No Evidence of Disease
90% Full Normal Activity & Work; Full Normal Full
Some Evidence of Disease
80% Full Normal Activity with Effort Full Normal or Full
Some Evidence of Disease Reduced
70% Reduced Unable Normal Job/Work Full Normal or Full
Significant Disease Reduced
60% Reduced Unable Hobby/Housework Occasional Normal or Full or Confusion
Significant Disease Assistance Reduced
50% Mainly Sit/Lie Unable to do Any Work Considerable Normal or Full or Confusion
Extensive Disease Assistance Req'd Reduced
40% Mainly in Bed Unable to do Most Activity Mainly Assistance Normal or Full or Drowsy;
Extensive Disease Reduced +/- Confusion
30% Totally Bed Unable to do Any Activity Total Care Normal or Full or Drowsy;
Bound Extensive Disease Reduced +/- Confusion
20% Totally Bed Bound Unable to do Any Activity Total Care Minimal to Full or Drowsy;
Extensive Disease Sips +/- Confusion
10% Totally Bed Bound Unable to do Any Activity Total Care Mouth Care Drowsy or Coma;
Extensive Disease Only +/- Confusion
0%
PPS Score Level:
Palliative Performance Score Response
Palliative Performance Score Response: 30%
Physical Exam
-
General: Appears Chronically Ill
HEENT: Normocephalic
Respiratory: Rhonchi
Cardiac: Regular Rhythm
GI: Soft
Neuro: Other (aphasic, lethargic )
Psych: Calm
Assessment / Plan
-
Assessment/Plan:
63 year old F with multiple strokes, bedbound with wounds, heart failure reduced EF 15% admitted with unresponsiveness. Treated for UTI and aspiration PNA.
- spoke with - see above. Agreeable to hospice referral.
Care Reviewed
Data Reviewed
Echocardiogram: Image Reviewed
Radiology procedure: Image Reviewed
Medical Tests: I reviewed
Reviewed with: Patient, Family, Physician and Other (hospice )
--- NOTE | 2024-03-08 10:03 | HOSPNOTE ---
Spoke with spouse and the plan is for patient to return home today with hospice services through . All equipment is in place. Patient will need transport, I contacted CM to please schedule transport OOH DNR will be needed on chart. Attending
updated with plan of care.
[2024-03-08 10:59] LABS: Magnesium 1.9 mg/dl (1.6-2.3)
[2024-03-08 11:40] VITALS: BP 155/95
--- NOTE | 2024-03-08 11:48 | W.PN.HOSP.TC ---
Addendum entered and electronically signed by Charanjit Henao MD 03/08/24 23:22:
Attending Addendum-
I saw and evaluated the patient. I reviewed the resident�s note and agree with findings and plan as documented in the resident�s note. Sub: patient not following commands at all. just moaning. NAEON. Full 12 point ROS reviewed and negative except as
documented Exam: Vitals reviewed in chart GEN-NAD heart RRR 3/6 SM @ apex and RUSB lungs rales at bases b/l abd soft NT ND pos BS LE- +1 b/l LE edema Neuro not following commands PERRLA b/l RUE hands contracted
# TME
- secondary to infection vs cardiac etiology
- monitor closely in IMU
- MRI brain- 03/02- Multiple regions of old infarction Atrophy and significant leukomalacia.
No evidence for acute to subacute infarction. No evidence for acute intracranial hemorrhage
- urine tox - neg
- blood cx - NGTD
- @ baseline- overall poor QOL- Hospice
#PNA
- completed Rocephin and doxy x 7 days
- hish asp risk
- hospice appropriate
# UTI
- blood cx-NGTD
- urine cx proteus- completed abx
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
- PT OT as able
- poor QOL
- hospice at home on dc
# Acute HFrEF exacerbation-New
- episodes of bradycardia and NIMI
- ECHO 03/01-Severely reduced left ventricular systolic function. Global hypokinesis. Normal left ventricular wall thickness.
Left ventricular ejection fraction is 15-20%
- cards input appreciated
- DC minoxidil
- monitor daily weights 80kg->73kg
- poor prog hospice on DC
# Hypernatremia
- resolved
- DC lasix
# Pseudohyponatremia
- corrected 136 (gluc 594)
# Leukocytosis
- resolved
# CVA with residual aphasia, left hemiparesis
-functionally quad
-Continue Plavix
-poor QOL
-hospice on DC
# Coronary Artery Disease s/p h/o Stent
- cont Plavix q 72
# Dysphagia
- changed to NPO 03/04 after reeval
- advance to pleasure feeds
- apparently eating regular food at home?
- aspiration precautions
- d/w re feeding options- he would like to attempt straw feeds as he does at home, accepts risks of aspiration and
- Poor prognosis- hospice on DC
# Essential Hypertension
- better controlled
- DC minoxidil indefinitely
- cont lisinopril when taking PO
- cont spironolactone when taking PO
# Hyperlipidemia
-Continue atorvastatin when taking PO
Diabetes Mellitus, Type II
-DC insulin home on hospice
# Stage 4 coccyx pressure injury
- POA
- continue wound care, not well taken care of at home
# Normocytic Anemia
DVT proph: SC Heparin
Code Status: DNR confirmed
ACP
Patient unable to consent to discuss, d/w POA, time spent explanation of advance directives, changes in health status, patient�s health care wishes if the patient becomes unable to make health decisions, goals of care, code status, and
prognosis 'i can charo ecare of her better at home. Im taking her home on hospice!' - 16 minutes
Time spent coordinating care, DC planning, review of DC plan of care with resident, transition of care, review of records, med rec/scripts sent electronically, consults, notes, d/w consultants, nursing, family, and CM total time documented is
exclusive of any additional time listed that was spent in advance care planning discussion � 31 mins
Original Note:
Today's Communication/Plan
-
Plan to transition to hospice
Assessment / Plan
Assessment / Plan
Patient is 63-year-old female with past medical history of multiple strokes, CAD, hypertension, diabetes mellitus who presents to [facility] after an unresponsive episode. While being evaluated by her wound care nurse at home, patient was
noted to be unresponsive.
Assessment/plan
#Toxic metabolic encephalopathy
Brain MRI negative
Urine toxicology negative
Blood cultures negative
#UTI
Urinary culture positive for Proteus
Completed doxycycline and Rocephin, day 7 of 7 on 03/07
Brain MRI negative for new
#Acute HFrEF
Echocardiogram showed severely reduced left ventricular systolic function and global hypokinesis. Left ventricular ejection fraction is 15 to 20%
Hold IV Lasix
Continue Coreg 12.5 twice daily, lisinopril and spironolactone
Continue daily weights and ins and outs
Avoid minoxidil
#Hypokalemia
40 mg of potassium given in normal saline this morning
Repeat BMP and replete as necessary
# Transaminitis
Continue to monitor LFTs
#CVA with residual aphasia, left hemiparesis
Bedbound at baseline, uses lift to sit in chair at home for few hours a day
Continue Plavix
Per speech, high risk for aspiration, currently n.p.o. is resistant to this and will continues to give patient fluids�she is seen coughing after
# Essential hypertension
Continue Coreg, lisinopril, spironolactone
#Hyperlipidemia
Continue atorvastatin
#T2DM
Hold NovoLog 70/30
Blood glucose 500+ this morning, 10 units of NovoLog given
Monitor glucose levels, coverage with SSI
#Stage 4 coccyx pressure injury POA
continue wound care
#Normocytic Anemia
Follow CBC
DVT prophylaxis; heparin subcu
CODE STATUS ; DNR
Poor prognosis
Plan to transition patient to hospice today. [id number] DNR form signed. Awaiting case management referral for final steps.
Anticipated Discharge: Within 24 hours
Subjective/Interval History
-
Date of Service: March 08, 2024
No acute events overnight. In conversation with yesterday evening he wanted to speak to palliative and hospice teams to discuss options for future care for his . It was explained that the quality of life is not necessarily improving
currently in the hospital. He urged that he would like to bring his home because she is most comfortable there. In conversation with hospice this morning, patient's decided to transition patient to hospice care
Objective Data
-
Labs:
Laboratory Results
03/08/24 03/08/24 03/08/24
00:09 07:59 07:59
WBC 8.6
Hgb 10.3 L
Hct 36.1 L
Plt Count 228
Sodium 152 H 128 L D Cancelled
Potassium 3.1 L 2.6 L*
Chloride 108 H
Carbon Dioxide 38 H
BUN 31 H
Creatinine 0.5 L
Glucose 313 H
Calcium 9.0
Total Bilirubin
AST
ALT
Alkaline Phosphatase
03/08/24 03/08/24 03/08/24
07:59 07:59 07:59
WBC
Hgb
Hct
Plt Count
Sodium
Potassium Cancelled
Chloride 89 L Cancelled
Carbon Dioxide 31 H Cancelled
BUN 22 H
Creatinine
Glucose
Calcium
Total Bilirubin
AST
ALT
Alkaline Phosphatase
03/08/24 03/08/24 03/08/24
07:59 07:59 07:59
WBC
Hgb
Hct
Plt Count
Sodium
Potassium
Chloride
Carbon Dioxide
BUN Cancelled
Creatinine 0.4 L Cancelled
Glucose 594 H* Cancelled
Calcium 7.0 L D
Total Bilirubin
AST
ALT
Alkaline Phosphatase
03/08/24
07:59
WBC
Hgb
Hct
Plt Count
Sodium
Potassium
Chloride
Carbon Dioxide
BUN
Creatinine
Glucose
Calcium Cancelled
Total Bilirubin 0.3
AST 17
ALT 24
Alkaline Phosphatase 70
Vital Signs:
Vital Signs
Temp Pulse Resp BP Pulse Ox
97.9 F 74 20 168/94 99
03/08/24 07:30 03/08/24 07:30 03/08/24 07:30 03/08/24 07:30 03/08/24 09:55
I&O
03/07/24 03/08/24 03/09/24
06:59 06:59 06:59
Intake Total 0 / 0 600 / 600
Output Total 400 / 400
Balance -400 / -400 600 / 600
Review of Systems
-
Unable to obtain full review of systems at this time due to: Patient Non-verbal
History Source: Patient
Physical Exam
-
General: No Apparent Distress and Appears Chronically Ill
Respiratory: Clear to Auscultation
Cardiac: Regular Rhythm and S1/S2
GI: Soft, Nontender and Nondistended
Musculoskeletal: No Clubbing and No Cyanosis
Skin: Warm and Dry
Psych: Other (Sedated)
Data Reviewed
-
Labs: Labs Reviewed by me and Discussed with Physician
Old Records: Reviewed
[2024-03-08 11:54] LABS: Glucose - Point of Care 187 mg/dl (70-99)
[2024-03-08 13:51] LABS: Glucose - Point of Care 160 mg/dl (70-99)
--- NOTE | 2024-03-08 13:54 | CM ---
CM notified by hospice; plan is for patient to return home today with hospice services through . All equipment is in place. Ambulance transport arranged for 2:30 draft roller picker today. Spouse notified of same. He asked that pt's 'supplements' be sent
home with her at discharge.
Hospice
--- NOTE | 2024-03-08 16:04 | W.DCSUMMARY ---
Addendum entered and electronically signed by Charanjit Henao MD 03/08/24 23:23:
Read, reviewed, and agree. See same day progress note for additional details. Lengthy discission with . All parties in agreement. DC home on hospice.
Bridger Henao MD
Original Note:
Documented by User: Carlee Terry DO, Resident 03/08/24 16:36
Discharge Summary
Discharge Data
Date of Admission: 02/29/24
Date of Discharge: 03/08/24
Total time spent discharging patient (in min): 50
-
Pending Results: No
Hospital Course
Discharging Physician : Charanjit Henao
Disposition : Home Hospice
Primary care physician : Lorna Hale
Principal Discharge diagnosis : symptomatic bradycardia
Hospital Course : Patient is 63-year-old female with past medical history of multiple strokes, CAD, hypertension, diabetes mellitus who presents to [facility] after an unresponsive episode. While being evaluated by her wound care nurse at
home, patient was noted to be unresponsive. In the ED she had recurrent episodes of bradycardia with apnea. She was recently treated for UTI with Bactrim and he has been manipulating many of her blood pressure medications due to recent volatility
and blood pressure at home. At baseline she is nonverbal and not responsive to most stimuli. To workup toxic metabolic encephalopathy, brain MRI, urine toxicology and blood cultures were negative. Urine analysis was positive and urine culture
grew Proteus. Patient was treated with doxycycline and Rocephin for 7 days. Echocardiogram showed severely reduced left ventricular systolic function and global hypokinesis with left ventricular ejection fraction of 15 to 20%. Patient was given
Coreg 12.5 twice daily, lisinopril and spironolactone for GDMT. Minoxidil was held and recommended to family to be avoided as it can worsen heart failure. For essential hypertension patient was managed with Coreg, lisinopril and spironolactone.
For hyperlipidemia patient was managed with atorvastatin. For type 2 diabetes, while n.p.o. NovoLog was held and given as needed. With history of CVA and residual aphasia/left hemiparesis, patient was at high risk of aspiration and recommended to
remain NPO. Near the end of patient's stay, really wanted to return home and opted to transition to hospice care. Patient stable for transport home.
Important imaging findings :
Brain MRI 03/01:
IMPRESSION: Rounded focus of enhancement posterior to the atrophic splenium of the corpus callosum, and at the inferior margin of the anterior aspect of the straight sinus. This is likely a small meningioma, with no significant associated mass
effect.
Multiple regions of old infarction as described.
Atrophy and significant leukomalacia.
No evidence for acute to subacute infarction. No evidence for acute intracranial hemorrhage.
Peripheral vascular ultrasound 02/28:
FINDINGS: Real-time grayscale and duplex ultrasound of the deep venous system of both lower extremities demonstrates no evidence of deep venous thrombosis. Normal flow is demonstrated in the posterior tibial, popliteal, superficial femoral and
common femoral veins bilaterally. These vessels are normally compressible and demonstrate normal flow augmentation with compression.
IMPRESSION: No evidence of deep venous thrombosis of the lower extremities bilaterally.
Head CT 02/28:
IMPRESSION:
No acute intracranial hemorrhage.
Old infarcts, as detailed above.
Findings compatible with marked diffuse cortical atrophy with nonspecific white matter changes as described above.
Chest x-ray 02/28:
IMPRESSION:
Mild right pneumonia.
Discharge Plan
-
Patient Disposition: Home with Hospice
Discharge Diagnosis/Procedures: symptomatic bradycardia
Condition: Fair
Diet: As tolerated
Activity: As tolerated
Driving Restrictions: No driving
Other Services: Hospice
Activity Restrictions/Additional Instructions:
Wound Care Instructions
Coccyx wound-rinse with Vashe wound cleanser, no sting barrier wipe or zinc barrier ointment to periwound skin, pack loosely with Mesalt ribbon, cover with alginate and sacral shaped silicone border foam, change daily and prn drainage. Cover L
sacral/buttocks abrasion with silicone border foam with each dressing change.
L posterior thigh/Ischium and R heel: clean with soap and water, silicone foam, change q 3 days and prn soilage.
Sacrum, L posterior thigh and L heel: clean with soap and water, silicone foam, change q 3 days and prn soilage.
TruVue lite Green and Gerardo offloading heel boots*Can take upon discharge
Turning frequently when in bed.
Air mattress (patient has a clinitron bed at home).
Referrals:
Lorna Hale MD [Family Provider] -
Prescriptions:
New
lisinopril 20 mg Tablet
20 mg PO DAILY 30 Days Qty: 30 0RF
sennosides-docusate sodium 8.6-50 mg Tablet
1 tab PO BIDPRN PRN (Reason: constipation) 30 Days Qty: 60 0RF
clopidogrel 75 mg Tablet
75 mg PO Q72H 30 Days Qty: 10 0RF
spironolactone 25 mg Tablet
25 mg PO DAILY Qty: 30 0RF
acetaminophen 325 mg Tablet
650 mg PO Q4HPRN PRN (Reason: mild pain/ fever>100.5F) 30 Days Qty: 60 0RF
polyethylene glycol 3350 17 gram Powder In Packet
17 g PO DAILYPRN PRN (Reason: constipation) 30 Days Qty: 30 0RF
ketoconazole 2 % Cream
1 applic topical BID 30 Days Qty: 3 0RF
carvedilol 12.5 mg Tablet
12.5 mg PO BID 30 Days Qty: 60 0RF
Continued
atorvastatin 20 mg Tablet
20 mg PO Q72H
cholecalciferol (vitamin D3) [Vitamin D3] 25 mcg (1,000 unit) Tablet
25 mcg PO DAILY
ascorbic acid (vitamin C) [Vitamin C] 1,000 mg Tablet
1 g PO DAILY
magnesium oxide 200 mg magnesium Tablet
200 mg PO DAILY
Discontinued
carvedilol 12.5 MG tablet
6.25 mg PO DAILYPRN PRN (Reason: SBP>130)
lisinopril 20 MG tablet
10 mg PO DAILYPRN PRN (Reason: SBP>140)
Theragen Tablet
1 tab PO DAILY
clopidogrel 75 mg Tablet
75 mg PO Q72H
minoxidil 2.5 mg tablet
1.25 - 2.5 mg PO HS
minoxidil 10 mg tablet
10 mg PO HSPRN PRN (Reason: High BP)
insulin asp prt-insulin aspart [Novolog Mix 70-30FlexPen U-100] 100 unit/mL (70-30) Insulin Pen
20 unit SC DAILY
insulin asp prt-insulin aspart [Novolog Mix 70-30FlexPen U-100] 100 unit/mL (70-30) Insulin Pen
25 - 30 unit SC NOON
Discharge Orders:
Discharge Patient (As Directed); Ordered 03/08/24
Ordered By: Carlee Terry
Discharge Date and Time
Discharge Date/Time: 03/08/24 15:15
Print Language: LAO

Documented by User: Charanjit Henao MD 03/08/24 23:12
Discharge Summary
Discharge Data
Date of Admission: 02/29/24
Date of Discharge: 03/08/24
Discharge Plan
-
Patient Disposition: Home with Hospice
Discharge Diagnosis/Procedures: symptomatic bradycardia
Condition: Fair
Diet: As tolerated
Activity: As tolerated
Driving Restrictions: No driving
Other Services: Hospice
Activity Restrictions/Additional Instructions:
Wound Care Instructions
Coccyx wound-rinse with Vashe wound cleanser, no sting barrier wipe or zinc barrier ointment to periwound skin, pack loosely with Mesalt ribbon, cover with alginate and sacral shaped silicone border foam, change daily and prn drainage. Cover L
sacral/buttocks abrasion with silicone border foam with each dressing change.
L posterior thigh/Ischium and R heel: clean with soap and water, silicone foam, change q 3 days and prn soilage.
Sacrum, L posterior thigh and L heel: clean with soap and water, silicone foam, change q 3 days and prn soilage.
TruVue lite Green and Gerardo offloading heel boots*Can take upon discharge
Turning frequently when in bed.
Air mattress (patient has a clinitron bed at home).
Referrals:
Lorna Hale MD [Family Provider] -
Prescriptions:
New
lisinopril 20 mg Tablet
20 mg PO DAILY 30 Days Qty: 30 0RF
sennosides-docusate sodium 8.6-50 mg Tablet
1 tab PO BIDPRN PRN (Reason: constipation) 30 Days Qty: 60 0RF
clopidogrel 75 mg Tablet
75 mg PO Q72H 30 Days Qty: 10 0RF
spironolactone 25 mg Tablet
25 mg PO DAILY Qty: 30 0RF
acetaminophen 325 mg Tablet
650 mg PO Q4HPRN PRN (Reason: mild pain/ fever>100.5F) 30 Days Qty: 60 0RF
polyethylene glycol 3350 17 gram Powder In Packet
17 g PO DAILYPRN PRN (Reason: constipation) 30 Days Qty: 30 0RF
ketoconazole 2 % Cream
1 applic topical BID 30 Days Qty: 3 0RF
carvedilol 12.5 mg Tablet
12.5 mg PO BID 30 Days Qty: 60 0RF
Continued
atorvastatin 20 mg Tablet
20 mg PO Q72H
cholecalciferol (vitamin D3) [Vitamin D3] 25 mcg (1,000 unit) Tablet
25 mcg PO DAILY
ascorbic acid (vitamin C) [Vitamin C] 1,000 mg Tablet
1 g PO DAILY
magnesium oxide 200 mg magnesium Tablet
200 mg PO DAILY
Discontinued
carvedilol 12.5 MG tablet
6.25 mg PO DAILYPRN PRN (Reason: SBP>130)
lisinopril 20 MG tablet
10 mg PO DAILYPRN PRN (Reason: SBP>140)
Theragen Tablet
1 tab PO DAILY
clopidogrel 75 mg Tablet
75 mg PO Q72H
minoxidil 2.5 mg tablet
1.25 - 2.5 mg PO HS
minoxidil 10 mg tablet
10 mg PO HSPRN PRN (Reason: High BP)
insulin asp prt-insulin aspart [Novolog Mix 70-30FlexPen U-100] 100 unit/mL (70-30) Insulin Pen
20 unit SC DAILY
insulin asp prt-insulin aspart [Novolog Mix 70-30FlexPen U-100] 100 unit/mL (70-30) Insulin Pen
25 - 30 unit SC NOON
Discharge Orders:
Discharge Patient (As Directed); Ordered 03/08/24
Ordered By: Carlee Terry
Discharge Date and Time
Discharge Date/Time: 03/08/24 15:15
Print Language: LAO
== END 2024-03-08 15:15 | disposition hospice, home (50) | DRG 177 ==
LOC: 4 EAST ACU 17:48
PROVIDERS: Internal Medicine; Internal Medicine Cardiovascular Disease; Physician Assistant Medical; Student in an Organized Health Care Education/Training Program; ADMITTING PHYSICIAN Hospitalist; ATTENDING PHYSICIAN Family Medicine; CONSULT PHYSICIAN Nurse Practitioner Gerontology; EMERGENCY PHYSICIAN Emergency Medicine; FAMILY PHYSICIAN Surgery Surgical Oncology; OTHER PHYSICIAN Internal Medicine Cardiovascular Disease
DX: J69.0 Pneumonitis due to inhalation of food and vomit (principal); I50.23 Acute on chronic systolic (congestive) heart failure; L89.154 Pressure ulcer of sacral region, stage 4; R53.2 Functional quadriplegia; G81.94 Hemiplegia, unspecified affecting left nondominant side; N39.0 Urinary tract infection, site not specified; E87.0 Hyperosmolality and hypernatremia; I31.39 Other pericardial effusion (noninflammatory); I69.320 Aphasia following cerebral infarction; Z74.01 Bed confinement status; Z79.02 Long term (current) use of antithrombotics/antiplatelets; I25.10 Atherosclerotic heart disease of native coronary artery without angina pectoris; Z95.5 Presence of coronary angioplasty implant and graft; I11.0 Hypertensive heart disease with heart failure; E11.9 Type 2 diabetes mellitus without complications; D64.9 Anemia, unspecified; Z66 Do not resuscitate; E78.00 Pure hypercholesterolemia, unspecified; B96.4 Proteus (mirabilis) (morganii) as the cause of diseases classified elsewhere; Z79.4 Long term (current) use of insulin; Z87.440 Personal history of urinary (tract) infections; Z11.52 Encounter for screening for COVID-19
CPT/HCPCS: 70450; 70553; 71046; 74230; 80048; 80053; 80306; 81003; 81015; 82533; 82607; 82728; 82746; 82805; 82962; 83036; 83540; 83550; 83735; 83880; 84145; 84443; 84484; 85025; 85027; 87040; 87070; 87077; 87086; 87186; 87502; 87811; 92523; 92526; 92610; 92611; 93005; 93306; 93970; 99285; A9585; J0878; Q9950